=== PATIENT | male | born 1935 | race Caucasian/White ===

== ENCOUNTER 2017-10-06 12:06 | Emergency (ER) | payer BC, MEDICARE, OTHER ==
[2017-10-06 12:14] VITALS: RESP 18
[2017-10-06] MEDS ORDERED: SODIUM CHLORIDE 0.9% 500 ML IV STA (12:31)
--- NOTE | 2017-10-06 12:35 | ED ---
General Adult HPI - General Chief complaint: Dizziness Stated complaint: Hypertension Time Seen by Provider: 10/06/17 12:17 Source: patient, RN notes reviewed, old records reviewed Mode of arrival: ambulatory Limitations: no limitations - History of Present Illness Initial comments: 82-year-old male presenting for evaluation of elevated blood pressure. Patient was sent by his primary care physician with a blood pressure 190 systolic. Patient has no real specific complaints. States he has been taking 2 pills which she believes are from blood pressure, is uncertain exactly what these medications are. No recent changes. Patient denies current chest pain. States he has a mild frontal headache which she took nothing for and attributes to his sinusitis. This is been long-standing and unchanged. Denies nausea or vomiting. Denies abdominal pain. Denies shortness of breath. Denies lower extremity swelling. Denies fever or chills or URI symptoms. Patient's states she does sleep a lot. No focal weakness. No numbness. No vision changes. - Related Data Home Medications Medication Instructions Recorded Confirmed Aspirin EC [Ecotrin Low Dose] 81 mg PO DAILY 10/06/17 10/06/17 Lisinopril [Zestril] 10 mg PO DAILY 10/06/17 10/06/17 Magnesium Gluconate [Magonate] 500 mg PO DAILY 10/06/17 10/06/17 Metoprolol Tartrate [Lopressor] 50 mg PO BID 10/06/17 10/06/17 Omeprazole 20 mg PO DAILY 10/06/17 10/06/17 Vit C/E/Zn/Coppr/Lutein/Zeaxan 1 cap PO DAILY 10/06/17 10/06/17 [Preservision Areds 2 Softgel] Previous Rx's Medication Instructions Recorded Lisinopril [Prinivil] 20 mg PO DAILY #30 tablet 10/06/17 Allergies Allergy/AdvReac Type Severity Reaction Status Date / Time No Known Allergies Allergy Verified 10/06/17 12:11 Review of Systems ROS Statement: Those systems with pertinent positive or pertinent negative responses have been documented in the HPI. ROS Other: All systems not noted in ROS Statement are negative. Past Medical History Past Medical History: Hypertension History of Any Multi-Drug Resistant Organisms: None Reported Past Surgical History: Appendectomy, Cholecystectomy Additional Past Surgical History / Comment(s): surgery for rib repair Past Psychological History: No Psychological Hx Reported Smoking Status: Former smoker Past Alcohol Use History: Occasional Past Drug Use History: None Reported General Exam Limitations: no limitations General appearance: alert, in no apparent distress Head exam: Present: atraumatic, normocephalic Eye exam: Present: normal appearance, PERRL, EOMI ENT exam: Present: normal exam. Absent: normal oropharynx, mucous membranes dry Neck exam: Present: normal inspection, tenderness Respiratory exam: Present: normal lung sounds bilaterally. Absent: respiratory distress, wheezes, rales Cardiovascular Exam: Present: regular rate, normal rhythm GI/Abdominal exam: Present: soft. Absent: distended, tenderness Extremities exam: Present: normal inspection, normal capillary refill Back exam: Present: normal inspection, full ROM Neurological exam: Present: alert, oriented X3, CN II-XII intact, normal gait, other (No ataxia). Absent: motor sensory deficit Psychiatric exam: Present: normal affect, normal mood Skin exam: Present: warm, dry, intact. Absent: cyanosis, diaphoretic Course Vital Signs 10/06/17 10/06/17 10/06/17 12:11 13:24 14:00 Temperature 97.2 F L Pulse Rate 79 75 58 L Respiratory 18 18 18 Rate Blood Pressure 191/94 172/92 156/82 O2 Sat by Pulse 96 97 97 Oximetry EKG Findings - EKG Comments: EKG Findings:: EKG: Sinus rhythm with first-degree AV block, left facial enlargement, left axis deviation, right bundle branch block, rate of 74, NM interval 248, QRS duration 166, QTC 481 Medical Decision Making - Medical Decision Making 82-year-old male presenting with elevated blood pressure. Patient has no real specific complaints. He was sent in by his primary care for elevated blood pressure in the 190s systolic. Patient's initial blood pressure is elevated. He receives IV hydration and an additional dose of his 10 mg of lisinopril. Blood pressure is down trending. Workup including CBC, CMP, troponin is negative. EKG shows right bundle branch block with first-degree AV block, no old for comparison, no definitive signs of ischemia. Patient is eager for discharge. He will increase his 10 mg lisinopril to 20 mg and will follow-up with his primary care physician. - Lab Data Result diagrams: 10/06/17 13:30 10/06/17 13:30 Lab Results 10/06/17 10/06/17 10/06/17 Range/Units 13:30 13:30 13:30 WBC 7.1 (3.8-10.6) k/uL RBC 5.13 (4.30-5.90) m/uL Hgb 14.3 (13.0-17.5) gm/dL Hct 42.9 (39.0-53.0) % MCV 83.8 (80.0-100.0) fL MCH 27.9 (25.0-35.0) pg MCHC 33.3 (31.0-37.0) g/dL RDW 14.0 (11.5-15.5) % Plt Count 288 (150-450) k/uL Neutrophils % 58 % Lymphocytes % 31 % Monocytes % 5 % Eosinophils % 4 % Basophils % 1 % Neutrophils # 4.1 (1.3-7.7) k/uL Lymphocytes # 2.2 (1.0-4.8) k/uL Monocytes # 0.4 (0-1.0) k/uL Eosinophils # 0.3 (0-0.7) k/uL Basophils # 0.1 (0-0.2) k/uL PT 9.9 (9.0-12.0) sec INR 1.0 (<1.2) Sodium 142 (137-145) mmol/L Potassium 4.6 (3.5-5.1) mmol/L Chloride 105 (98-107) mmol/L Carbon Dioxide 25 (22-30) mmol/L Anion Gap 12 mmol/L BUN 16 (9-20) mg/dL Creatinine 0.93 (0.66-1.25) mg/dL Est GFR (CKD-EPI)AfAm 90 (>60 ml/min/1.73 sqM) Est GFR (CKD-EPI)NonAf 78 (>60 ml/min/1.73 sqM) Glucose 83 (74-99) mg/dL Calcium 9.1 (8.4-10.2) mg/dL Total Bilirubin 0.5 (0.2-1.3) mg/dL AST 28 (17-59) U/L ALT 34 (21-72) U/L Alkaline Phosphatase 81 (38-126) U/L Troponin I (0.000-0.034) ng/mL Total Protein 7.1 (6.3-8.2) g/dL Albumin 4.1 (3.5-5.0) g/dL 10/06/17 Range/Units 13:30 WBC (3.8-10.6) k/uL RBC (4.30-5.90) m/uL Hgb (13.0-17.5) gm/dL Hct (39.0-53.0) % MCV (80.0-100.0) fL MCH (25.0-35.0) pg MCHC (31.0-37.0) g/dL RDW (11.5-15.5) % Plt Count (150-450) k/uL Neutrophils % % Lymphocytes % % Monocytes % % Eosinophils % % Basophils % % Neutrophils # (1.3-7.7) k/uL Lymphocytes # (1.0-4.8) k/uL Monocytes # (0-1.0) k/uL Eosinophils # (0-0.7) k/uL Basophils # (0-0.2) k/uL PT (9.0-12.0) sec INR (<1.2) Sodium (137-145) mmol/L Potassium (3.5-5.1) mmol/L Chloride (98-107) mmol/L Carbon Dioxide (22-30) mmol/L Anion Gap mmol/L BUN (9-20) mg/dL Creatinine (0.66-1.25) mg/dL Est GFR (CKD-EPI)AfAm (>60 ml/min/1.73 sqM) Est GFR (CKD-EPI)NonAf (>60 ml/min/1.73 sqM) Glucose (74-99) mg/dL Calcium (8.4-10.2) mg/dL Total Bilirubin (0.2-1.3) mg/dL AST (17-59) U/L ALT (21-72) U/L Alkaline Phosphatase (38-126) U/L Troponin I <0.012 (0.000-0.034) ng/mL Total Protein (6.3-8.2) g/dL Albumin (3.5-5.0) g/dL Disposition Clinical Impression: Hypertension Disposition: HOME SELF-CARE Condition: Good Instructions: Hypertension (ED) Additional Instructions: Please increase lisinopril dose to 20 mg daily. Monitor blood pressure and follow-up with primary care physician. Prescriptions: Lisinopril [Prinivil] 20 mg PO DAILY #30 tablet Is patient prescribed a controlled substance at d/c from ED?: No Referrals: [facility],Clinic [Primary Care Provider] - 1-2 days Time of Disposition: 14:54
[2017-10-06 13:47] LABS: Basophils # (A) 0.1 k/uL (0-0.2); Basophils % (A) 1 %; Eosinophils # (A) 0.3 k/uL (0-0.7); Eosinophils % (A) 4 %; HCT 42.9 % (39.0-53.0); HGB 14.3 gm/dL (13.0-17.5); Lymphocytes # (A) 2.2 k/uL (1.0-4.8); Lymphocytes % (A) 31 %; MCH 27.9 pg (25.0-35.0); MCHC 33.3 g/dL (31.0-37.0); MCV 83.8 fL (80.0-100.0); Mean Platelet Volume 7.8; Monocytes # (A) 0.4 k/uL (0-1.0); Monocytes % (A) 5 %; Neutrophils # (A) 4.1 k/uL (1.3-7.7); Neutrophils % (A) 58 %; Platelet Count 288 k/uL (150-450); RBC 5.13 m/uL (4.30-5.90); WBC 7.1 k/uL (3.8-10.6)
--- NOTE | 2017-10-06 13:49 | XR ---
EXAMINATION TYPE: XR chest 2V DATE OF EXAM: 10/06/2017 COMPARISON: NONE HISTORY: Chest pain and hypertension TECHNIQUE: Frontal and lateral views of the chest are obtained. FINDINGS: Minimal left basilar platelike subsegmental atelectasis is noted. There is no focal air spa ce opacity, pleural effusion, or pneumothorax seen. The cardiac silhouette size is within normal cook its. The osseous structures are intact. Mild generalized osseous demineralization is seen. IMPRESSION: Minimal left basilar subsegmental atelectasis, otherwise acute cardiopulmonary process.
[2017-10-06 13:53] LABS: Prothrombin Time 9.9 sec (9.0-12.0)
[2017-10-06 13:56] LABS: Albumin 4.1 g/dL (3.5-5.0); Calcium 9.1 mg/dL (8.4-10.2); Potassium 4.6 mmol/L (3.5-5.1); Total Bilirubin 0.5 mg/dL (0.2-1.3); Total Protein 7.1 g/dL (6.3-8.2)
[2017-10-06] MEDS ORDERED: LISINOPRIL 10 MG TAB PO STA (14:17)
[2017-10-06 15:25] VITALS: BP 167/79; PULSE 72; TEMP 97.4
== END 2017-10-06 15:23 | disposition home or self-care (01) ==
LOC: EC 12:06
DX: I10 Essential (primary) hypertension (principal); I45.10 Unspecified right bundle-branch block; I44.0 Atrioventricular block, first degree; Z87.891 Personal history of nicotine dependence; Z79.82 Long term (current) use of aspirin; Z79.899 Other long term (current) drug therapy
CPT/HCPCS: 36415; 71046; 80053; 84484; 85025; 85610; 93005; 99284

== ENCOUNTER 2023-01-03 13:13 | Inpatient (IN) | payer OTHER, MEDICARE ==
--- NOTE | 2023-01-03 15:23 | XR ---
EXAMINATION TYPE: XR chest 2V DATE OF EXAM: 01/03/2023 COMPARISON: 5 08/12/2019 TECHNIQUE: PA and lateral views submitted. HISTORY: Difficulty breathing FINDINGS: The lungs are clear and there is no pneumothorax, pleural effusion, or focal pneumonia. Heart size normal and no overt failure. Osseous structures demonstrate hypertrophic and degenerative changes of the spine. Hyperinflation of the lungs. There is arthropathy of the shoulders with diffuse osteopenia . Tortuosity of the aorta. Biapical pleural thickening. Hypertrophic and degenerative changes of the spine. A rounded density in the left hilum may represent a small calcified lymph node or granuloma. IMPRESSION: 1. No acute process. 2. Correlate for COPD\ pulmonary arterial hypertension.
[2023-01-03 15:38] LABS: Basophils % (A) 0 %; Eosinophils # (A) 0.1 k/uL (0-0.7); Eosinophils % (A) 1 %; HCT 45.2 % (39.0-53.0); Lymphocytes % (A) 21 %; MCH 29.2 pg (25.0-35.0); MCHC 33.1 g/dL (31.0-37.0); MCV 88.1 fL (80.0-100.0); Mean Platelet Volume 8.3; Monocytes # (A) 0.5 k/uL (0-1.0); Monocytes % (A) 5 %; Neutrophils # (A) 6.5 k/uL (1.3-7.7); Neutrophils % (A) 70 %; Platelet Count 248 k/uL (150-450); RBC 5.13 m/uL (4.30-5.90); RDW 13.8 % (11.5-15.5); WBC 9.3 k/uL (3.8-10.6)
[2023-01-03 15:39] LABS: Partial Thromboplastin Time 25.7 sec (22.0-30.0); Prothrombin Time 10.3 sec (9.0-12.0)
[2023-01-03 15:43] LABS: ALT 35 U/L (4-49); AST 30 U/L (17-59); African American GFR (CKD) 76 (>60 ml/min/1.73 sqM); Alkaline Phosphatase 89 U/L (38-126); Anion Gap 8 mmol/L; Blood Urea Nitrogen 19 mg/dL (9-20); Calcium 8.5 mg/dL (8.4-10.2); Carbon Dioxide 28 mmol/L (22-30); Chloride 103 mmol/L (98-107); Glucose 93 mg/dL (74-99); Magnesium 2.2 mg/dL (1.6-2.3); Non-African American GFR(CKD) 66 (>60 ml/min/1.73 sqM); Potassium 4.3 mmol/L (3.5-5.1); Sodium 139 mmol/L (137-145); Total Bilirubin 0.9 mg/dL (0.2-1.3); Total Protein 7.7 g/dL (6.3-8.2)
--- NOTE | 2023-01-03 18:33 | ED ---
SOB HPI - General Chief Complaint: Shortness of Breath Stated Complaint: SOB Time Seen by Provider: 01/03/23 16:04 Source: patient Mode of arrival: ambulatory Limitations: no limitations - History of Present Illness Initial Comments: 87-year-old male with past medical history of hypertension who presents to the emergency department reporting shortness of breath. Daughter and are at bedside and helps supplement the history. States that the patient has been more short of breath over the past month with extreme worsening over the past 2 weeks. They state that he cannot walk to the end of his driveway without having to stop. He denies previous history of lung issues. Denies COPD or asthma. Does admit that he has chest pressure with these shortness of breath. Denies history of coronary disease but does admit to history of aortic aneurysm. He has had some lower extremity swelling. No history of heart failure. Denies history of DVT or PE. No fevers, chills or cough. No other alleviating, precipitating or modifying factors - Related Data Home Medications Medication Instructions Recorded Confirmed Aspirin EC [Ecotrin Low Dose] 81 mg PO Q2D 10/06/17 01/03/23 Magnesium Gluconate [Magonate] 500 mg PO HS 10/06/17 01/03/23 Vit C/E/Zn/Coppr/Lutein/Zeaxan 1 cap PO DAILY 10/06/17 01/03/23 [Preservision Areds 2 Softgel] Carboxymethylcellulose Sodium 1 drop BOTH EYES QID 01/03/23 01/03/23 [Refresh Tears] Lisinopril-Hctz 20-12.5 mg 1 tab PO DAILY 01/03/23 01/03/23 [Zestoretic 20-12.5] Metoprolol Tartrate [Lopressor] 25 mg PO BID 01/03/23 01/03/23 Allergies Allergy/AdvReac Type Severity Reaction Status Date / Time No Known Allergies Allergy Verified 01/03/23 17:03 Review of Systems ROS Statement: Those systems with pertinent positive or pertinent negative responses have been documented in the HPI. ROS Other: All systems not noted in ROS Statement are negative. 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 Past Psychological History: No Psychological Hx Reported Smoking Status: Former smoker Past Alcohol Use History: Occasional Past Drug Use History: None Reported - Past Family History Father Family Medical History: COPD General Exam Limitations: no limitations General appearance: alert, in no apparent distress Head exam: Present: atraumatic, normocephalic, normal inspection Eye exam: Present: normal appearance, PERRL, EOMI. Absent: scleral icterus, co njunctival injection, periorbital swelling ENT exam: Present: normal exam, mucous membranes moist Neck exam: Present: normal inspection. Absent: tenderness, meningismus, lymphadenopathy Respiratory exam: Present: normal lung sounds bilaterally. Absent: respiratory distress, wheezes, rales, rhonchi, stridor Cardiovascular Exam: Present: regular rate, normal rhythm, normal heart sounds. Absent: systolic murmur, diastolic murmur, rubs, gallop, clicks GI/Abdominal exam: Present: soft, normal bowel sounds. Absent: distended, tenderness, guarding, rebound, rigid Extremities exam: Present: full ROM, normal capillary refill, pedal edema (2+ bilaterally). Absent: tenderness, joint swelling, calf tenderness Back exam: Present: normal inspection Neurological exam: Present: alert, oriented X3, CN II-XII intact Psychiatric exam: Present: normal affect, normal mood Skin exam: Present: warm, dry, intact, normal color. Absent: rash Course Vital Signs 01/03/23 01/03/23 01/03/23 13:38 16:14 20:00 Temperature 97.5 F L Pulse Rate 98 94 78 Respiratory 22 18 22 Rate Blood Pressure 104/68 160/95 158/85 O2 Sat by Pulse 93 L 93 L 96 Oximetry 01/03/23 01/04/23 22:00 01:00 Temperature Pulse Rate 76 80 Respiratory 22 18 Rate Blood Pressure 146/92 137/95 O2 Sat by Pulse 96 97 Oximetry - Reevaluation(s) Reevaluation #1: 01/03/23 18:[address] Mckeon Reevaluation #2: Spoke with Dr. Khalil 01/03/23 18:42 Medical Decision Making - Medical Decision Making Was pt. sent in by a medical professional or institution (DrJoyce, PA, STUDIO TECHNICIAN, urgent care, hospital, or care home...) When possible be specific @ -No Did you speak to anyone other than the patient for history (EMS, parent, family, police, friend...)? What history was obtained from this source @ -I spoke with the patient's and daughter Did you review nursing and triage notes (agree or disagree)? Why? @ -I reviewed and agree with nursing and triage notes Were old charts reviewed (outside hosp., previous admission, EMS record, old EKG, old radiological studies, urgent care reports/EKG's, care home records)? Report findings @ -No old charts were reviewed Differential Diagnosis (chest pain, altered mental status, abdominal pain women, abdominal pain men, vaginal bleeding, weakness, fever, dyspnea, syncope, headache, dizziness, GI bleed, back pain, seizure, CVA, palpatations, mental he alth, musculoskeletal)? @ -Differential Dyspnea: Coronary syndrome, arrhythmia, tamponade, asthma, COPD, pulmonary embolism, pneumonia, pneumothorax, pulmonary effusion, anaphylaxis, diabetic ketoacidosis, flailed chest, pulmonary contusion, diaphragmatic rupture, anemia, neurom uscular, this is not meant to be an all-inclusive list. EKG interpreted by me (3pts min.). @ -Yes and demonstrates sinus tachycardia with a rate of 103. MT interval 219. QRS 152. QTC of 408. Right bundle branch block. Left axis deviation. Multiple PVCs X-rays interpreted by me (1pt min.). @ -Yes and demonstrates hyperinflated lungs CT interpreted by me (1pt min.). @ -Yes and demonstrates multiple PEs bilaterally U/S interpreted by me (1pt. min.). @ -None done What testing was considered but not performed or refused? (CT, X-rays, U/S, labs)? Why? @ -None What meds were considered but not given or refused? Why? @ -None Did you discuss the management of the patient with other professionals (professionals i.e. DrJoyce, PA, STUDIO TECHNICIAN, lab, RT, psych nurse, psychotherapist social worker, supply requirements officer, teacher, prison officer, immigration case worker)? Give summary @ -I spoke with Dr. Khalil who is on for EKOS. Also spoke with Dr. Ch who will admit patient Was smoking cessation discussed for >3mins.? @ -No Was critical care preformed (if so, how long)? @ -yes, 42 minutes for diagnosis of bilateral PEs with heparin. Consultation was with vascular surgery Were there social determinants of health that impacted care today? How? (Homelessness, low income, unemployed, alcoholism, drug addiction, transportation, low edu. Level, literacy, decrease access to med. care, long-term, rehab)? @ -No Was there de-escalation of care discussed even if they declined (Discuss DNR or withdrawal of care, Hospice)? DNR status @ -No What co-morbidities impacted this encounter? (DM, HTN, Smoking, COPD, CAD, Cancer, CVA, ARF, Chemo, Hep., AIDS, mental health diagnosis, sleep apnea, morbid obesity)? @ -Obesity Was patient admitted / discharged? Hospital course, mention meds given and route, prescriptions, significant lab abnormalities, going to OR and other pert inent info. @ -Upon arrival patient was placed in room 17. A thorough history and physical exam was performed. Triage labs had been obtained. I have limited the patient myself in added a d-dimer. D-dimer does come back elevated at 12. He is sent for CT of his chest which demonstrates multiple bilateral PEs with concern for possible heart strain. I did speak with Dr. Khalil who is on for EKOS. Patient hemodynamically stable at this time. Started on a heparin drip. Spoke with Melissa from [facility] who agreed to admit the patient Undiagnosed new problem with uncertain prognosis? @ -Yes Drug Therapy requiring intensive monitoring for toxicity (Heparin, Nitro, Insulin, Cardizem)? @ -Yes, heparin Were any procedures done? @ -No Diagnosis/symptom? @ -Acute respiratory insufficiency, acute bilateral PE with possible heart strain Acute, or Chronic, or Acute on Chronic? @ -Acute Uncomplicated (without systemic symptoms) or Complicated (systemic symptoms)? @ -Complicated Side effects of treatment? @ -Bleeding Exacerbation, Progression, or Severe Exacerbation? @ -No Poses a threat to life or bodily function? How? (Chest pain, USA, MA, pneumonia, PE, COPD, DKA, ARF, appy, cholecystitis, CVA, Diverticulitis, Homicidal, Suicidal, threat to staff... and all critical care pts) @ -Yes patient has possible heart strain - Lab Data Result diagrams: 01/03/23 15:04 01/03/23 15:04 Lab Results 01/03/23 01/03/23 01/03/23 Range/Units 15:04 15:04 15:04 WBC 9.3 (3.8-10.6) k/uL RBC 5.13 (4.30-5.90) m/uL Hgb 15.0 (13.0-17.5) gm/dL Hct 45.2 (39.0-53.0) % MCV 88.1 (80.0-100.0) fL MCH 29.2 (25.0-35.0) pg MCHC 33.1 (31.0-37.0) g/dL RDW 13.8 (11.5-15.5) % Plt Count 248 (150-450) k/uL MPV 8.3 Neutrophils % 70 % Lymphocytes % 21 % Monocytes % 5 % Eosinophils % 1 % Basophils % 0 % Neutrophils # 6.5 (1.3-7.7) k/uL Lymphocytes # 2.0 (1.0-4.8) k/uL Monocytes # 0.5 (0-1.0) k/uL Eosinophils # 0.1 (0-0.7) k/uL Basophils # 0.0 (0-0.2) k/uL PT 10.3 (9.0-12.0) sec INR 1.0 (<1.2) APTT 25.7 (22.0-30.0) sec D-Dimer (<0.60) mg/L FEU Sodium 139 (137-145) mmol/L Potassium 4.3 (3.5-5.1) mmol/L Chloride 103 (98-107) mmol/L Carbon Dioxide 28 (22-30) mmol/L Anion Gap 8 mmol/L BUN 19 (9-20) mg/dL Creatinine 1.04 (0.66-1.25) mg/dL Est GFR (CKD-EPI)AfAm 76 (>60 ml/min/1.73 sqM) Est GFR (CKD-EPI)NonAf 66 (>60 ml/min/1.73 sqM) Glucose 93 (74-99) mg/dL Calcium 8.5 (8.4-10.2) mg/dL Magnesium 2.2 (1.6-2.3) mg/dL Total Bilirubin 0.9 (0.2-1.3) mg/dL AST 30 (17-59) U/L ALT 35 (4-49) U/L Alkaline Phosphatase 89 (38-126) U/L Troponin I (0.000-0.034) ng/mL NT-Pro-B Natriuret Pep pg/mL Total Protein 7.7 (6.3-8.2) g/dL Albumin 4.0 (3.5-5.0) g/dL 01/03/23 01/03/23 01/03/23 Range/Units 15:04 15:04 16:17 WBC (3.8-10.6) k/uL RBC (4.30-5.90) m/uL Hgb (13.0-17.5) gm/dL Hct (39.0-53.0) % MCV (80.0-100.0) fL MCH (25.0-35.0) pg MCHC (31.0-37.0) g/dL RDW (11.5-15.5) % Plt Count (150-450) k/uL MPV Neutrophils % % Lymphocytes % % Monocytes % % Eosinophils % % Basophils % % Neutrophils # (1.3-7.7) k/uL Lymphocytes # (1.0-4.8) k/uL Monocytes # (0-1.0) k/uL Eosinophils # (0-0.7) k/uL Basophils # (0-0.2) k/uL PT (9.0-12.0) sec INR (<1.2) APTT (22.0-30.0) sec D-Dimer 12.43 H (<0.60) mg/L FEU Sodium (137-145) mmol/L Potassium (3.5-5.1) mmol/L Chloride (98-107) mmol/L Carbon Dioxide (22-30) mmol/L Anion Gap mmol/L BUN (9-20) mg/dL Creatinine (0.66-1.25) mg/dL Est GFR (CKD-EPI)AfAm (>60 ml/min/1.73 sqM) Est GFR (CKD-EPI)NonAf (>60 ml/min/1.73 sqM) Glucose (74-99) mg/dL Calcium (8.4-10.2) mg/dL Magnesium (1.6-2.3) mg/dL Total Bilirubin (0.2-1.3) mg/dL AST (17-59) U/L ALT (4-49) U/L Alkaline Phosphatase (38-126) U/L Troponin I 0.033 (0.000-0.034) ng/mL NT-Pro-B Natriuret Pep 6560 pg/mL Total Protein (6.3-8.2) g/dL Albumin (3.5-5.0) g/dL Disposition Clinical Impression: Pulmonary embolism, Hypoxia Disposition: ADMITTED IP TO THIS [facility] Condition: Serious Is patient prescribed a controlled substance at d/c from ED?: No Time of Disposition: 18:44 Decision to Admit Reason: Admit from EC Decision Date: 01/03/23 Decision Time: 18:44
[2023-01-03] MEDS ORDERED: HEPARIN SODIUM 1,000 UN/ML (10ML VL) IV ONE (18:37)
[2023-01-03] MEDS ORDERED: HEPARIN SODIUM 1,000 UN/ML (10ML VL) IV PRN (18:37)
--- NOTE | 2023-01-03 18:39 | CT ---
EXAMINATION TYPE: CT chest angio for PE DATE OF EXAM: 01/03/2023 COMPARISON: Radiograph same day HISTORY: 87-year-old male chest pain and SOB TECHNIQUE: Contiguous axial scanning of the chest performed with IV Contrast, patient injected with 8 0 mL of Isovue 370. Coronal/sagittal MIP reconstructions performed. CT DLP: 658.9 mGycm Automated exposure control for dose reduction was used. FINDINGS: The heart is upper limits of normal in size without pericardial effusion. There is flattening of the interventricular septum. Mild LAD coronary artery calcifications and mild aortic valvular calcificati ons. Aorta normal caliber with mild atelectatic calcifications throughout. Conventional arch vessel branch ing anatomy. There is a small ductal diverticulum measuring 1.5 cm from the inferior aortic arch. No thoracic lymphadenopathy by CT size criteria. Large caliber to the main right and left pulmonary arteries measuring up to 3.3 cm compatible with pu lmonary hypertension. There is pulmonary embolus on the right extending throughout the lobar, segmental, subsegmental branc hes throughout the right lung. On the left, distal lobar branch embolic material extends extensively into segmental and some subsegm ental branches. There is a focal opacity posterior left upper lobe which is nonspecific. Mild emphysematous change. B radycardia motion artifact. Additional patchy opacity at the left base. No pleural effusion. Small hiatal hernia. Cholecystectomy clips. There is a 2.8 cm cyst of the left hepatic dome. Tiny tello cified granulomas within the spleen. Bones: Anterior plate spondylosis mid to lower thoracic spine. IMPRESSION: 1. POSITIVE FOR BILATERAL PULMONARY EMBOLI, EXTENSIVELY INVOLVING THE RIGHT LUNG THROUGHOUT THE LOBAR , SEGMENTAL, AND SUBSEGMENTAL BRANCHES. LESS EXTENSIVELY INVOLVING DISTAL LOBAR, SEGMENTAL, AND SOME SUBSEGMENTAL BRANCHES ON THE LEFT. SEVERE BURDEN OF CLOT ON THE RIGHT. 2. CT FINDINGS SUGGEST RIGHT HEART STRAIN. 3. COPD WITH MILD EMPHYSEMA. THERE IS SOME FOCAL AIR SPACE OPACITY POSTERIOR LEFT UPPER LOBE WHICH IS NONSPECIFIC. PNEUMONIA AND EARLY PULMONARY INFARCT ARE BOTH CONSIDERATIONS. FINDINGS DISCUSSED OVER THE PHONE WITH DR. CÁRDENAS IN THE ER AT 6:35 PM.
[2023-01-03] MEDS ORDERED: NALOXONE 0.4 MG/ML 1 ML VIAL IV PRN (18:44)
[2023-01-03] MEDS: HEPARIN SOD,PORK IN 0.45% NACL 25,000 UNIT in 0.45% NACL 1 250ML.BAG IV SCH (18:53)
--- NOTE | 2023-01-04 01:51 | P.HPIM ---
History of Present Illness H&P Date: 01/03/23 Patient is a 87-year-old male with a PMH of hypertension who presents to the emergency room with complaints of shortness of breath. The patient reports that he has been experiencing gradually worsening shortness of breath over the past 1 month. He reports that the breathing significantly worsened over the past few days, which prompted him to come to the emergency room. He also reports a left lateral pleuritic chest discomfort, 4 out of 10 at maximal intensity, nonradiating, with no exacerbating features. Patient reports he went on a trip to [place] earlier in the month but is unsure if that is exactly when his symptoms started. Reports long-standing history of bilateral lower extremity pitting edema, with left slightly greater than right. Denied lower extremity pain. Denied experiencing fever, chills, cough, abdominal pain, nausea, vomiting, diaphoresis. In the emergency room, upon arrival, the patient's vitals were SpO2 93% on room air, BP 104/68, pulse 98, and temp 97.5F. CT chest angiogram for PE revealed bilateral pulmonary emboli with extensive involvement with severe burden of clot on the right with findings suggestive of right heart strain. EKG revealed sinus tachycardia 103 bpm with first-degree AV block with left axis deviation and right bundle branch block. The laboratory evaluation was reviewed and revealed a troponin of 0.033 proBNP 6560. ED documentation reviewed and case discussed with ED provider. Review of systems: Pertinent positives and negatives as discussed in HPI, a complete review of systems was performed and all other systems are negative. Physical examination: Vital signs reviewed General: non toxic, no distress, appears at stated age, normal weight Derm: no unusual rashes/lesions, warm Head: atraumatic, normocephalic, symmetric Eyes: EOMI, no lid lag, anicteric sclera, pupils equal round reactive to light ENT: Nose and ears atraumatic Neck: No cervical lymphadenopathy, trachea midline, supple Mouth: no lip lesion, mucus membranes moist Cardiovascular: S1S2 reg, no murmur, positive dorsalis pedis pulse bilateral, 1+ bilateral lower extremities edema without calf tenderness Lungs: CTA bilateral, no rhonchi, no rales, no accessory muscle use Abdominal: soft, nontender to palpation, no guarding Ext: muscle strength 5 out of 5 in all 4 extremities grossly, no gross muscle atrophy, no contractures, Neuro: CN II-XI grossly intact, no gross focal neuro deficits Psych: Alert, oriented, appropriate affect Assessment: Submassive bilateral PE Acute hypoxic respiratory failure secondary to above Chronic conditions: Hypertension Imaging: CT chest angiogram for PE revealed bilateral pulmonary emboli with extensive involvement with severe burden of clot on the right with findings suggestive of right heart strain. EKG revealed sinus tachycardia 103 bpm with first-degree AV block with left axis deviation and right bundle branch block. Data Review: The laboratory evaluation was reviewed and revealed a troponin of 0.033 proBNP 6560. 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 Past Psychological History: No Psychological Hx Reported Smoking Status: Former smoker Past Alcohol Use History: Occasional Past Drug Use History: None Reported - Past Family History Father Family Medical History: COPD Medications and Allergies Home Medications Medication Instructions Recorded Confirmed Type Aspirin EC [Ecotrin Low Dose] 81 mg PO Q2D 10/06/17 01/03/23 History Magnesium Gluconate [Magonate] 500 mg PO HS 10/06/17 01/03/23 History Vit C/E/Zn/Coppr/Lutein/Zeaxan 1 cap PO DAILY 10/06/17 01/03/23 History [Preservision Areds 2 Softgel] Carboxymethylcellulose Sodium 1 drop BOTH EYES QID 01/03/23 01/03/23 History [Refresh Tears] Lisinopril-Hctz 20-12.5 mg 1 tab PO DAILY 01/03/23 01/03/23 History [Zestoretic 20-12.5] Metoprolol Tartrate [Lopressor] 25 mg PO BID 01/03/23 01/03/23 History Allergies Allergy/AdvReac Type Severity Reaction Status Date / Time No Known Allergies Allergy Verified 01/03/23 17:03 Physical Exam Vitals: Vital Signs Temp Pulse Resp BP Pulse Ox 01/03/23 16:14 94 18 160/95 93 L 01/03/23 13:38 97.5 F L 98 22 104/68 93 L Intake and Output 01/03/23 01/03/23 01/04/23 14:59 22:59 06:59 Other: Weight 102.512 kg Results CBC & Chem 7: 01/03/23 15:04 01/03/23 15:04 Labs: Abnormal Lab Results - Last 24 Hours (Table) 01/03/23 Range/Units 16:17 D-Dimer 12.43 H (<0.60) mg/L FEU
[2023-01-04 05:27] LABS: Basophils # (A) 0.1 k/uL (0-0.2); Basophils % (A) 1 %; Eosinophils # (A) 0.3 k/uL (0-0.7); Eosinophils % (A) 3 %; HCT 42.2 % (39.0-53.0); HGB 13.9 gm/dL (13.0-17.5); Lymphocytes # (A) 2.3 k/uL (1.0-4.8); Lymphocytes % (A) 28 %; MCH 29.3 pg (25.0-35.0); MCHC 32.9 g/dL (31.0-37.0); MCV 88.9 fL (80.0-100.0); Mean Platelet Volume 9.9; Monocytes # (A) 0.5 k/uL (0-1.0); Monocytes % (A) 6 %; Neutrophils % (A) 61 %; Platelet Count 216 k/uL (150-450); RBC 4.75 m/uL (4.30-5.90); RDW 13.7 % (11.5-15.5); WBC 8.3 k/uL (3.8-10.6)
[2023-01-04 05:52] LABS: ALT 34 U/L (4-49); AST 33 U/L (17-59); African American GFR (CKD) 90 (>60 ml/min/1.73 sqM); Albumin 3.5 g/dL (3.5-5.0); Alkaline Phosphatase 88 U/L (38-126); Anion Gap 8 mmol/L; Blood Urea Nitrogen 19 mg/dL (9-20); Calcium 8.5 mg/dL (8.4-10.2); Carbon Dioxide 21 mmol/L (22-30); Chloride 107 mmol/L (98-107); Glucose 102 mg/dL (74-99); Non-African American GFR(CKD) 78 (>60 ml/min/1.73 sqM); Potassium 4.4 mmol/L (3.5-5.1); Sodium 136 mmol/L (137-145); Total Bilirubin 0.9 mg/dL (0.2-1.3); Total Protein 6.9 g/dL (6.3-8.2)
--- NOTE | 2023-01-04 09:20 | P.GSCN ---
History of Present Illness Consult date: 01/04/23 Reason for Consult: Lateral pulmonary emboli with possible right heart strain Requesting physician: Rubia Sanchez History of present illness: A pleasant 87-year-old male who presented to the emergency department with c omplaints of shortness of breath and chest pain. He should has a past medical history including a pretension and COPD. over the last month he's been having gradually worsening shortness of breath. After last few days and has been worsening and he started having left pleuritic chest discomfort. He did take a trip to [place] earlier in the month. No previous history of DVT or pulmonary embolism. Patient is currently on oxygen 2 L per nasal cannula, saturations are 94-97%. Heart rate 83 respiratory rate 18 blood pressure 135/88. Had a CT angiogram chest which showed multiple bilateral pulmonary emboli. Vascular surgery was consulted for bilateral PE with possible heart strain. Patient's troponins are negative. Echocardiogram is currently pending. He states he is feeling much better, shortness of breath has improved, denies any chest pain at this time. Denies any pain in his legs. Review of Systems A 14 point review systems was completed all pertinent positives and negatives as stated in the HPI. 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 Past Psychological History: No Psychological Hx Reported Smoking Status: Former smoker Past Alcohol Use History: Occasional Past Drug Use History: None Reported - Past Family History Father Family Medical History: COPD Medications and Allergies Home Medications Medication Instructions Recorded Confirmed Type Aspirin EC [Ecotrin Low Dose] 81 mg PO Q2D 10/06/17 01/03/23 History Magnesium Gluconate [Magonate] 500 mg PO HS 10/06/17 01/03/23 History Vit C/E/Zn/Coppr/Lutein/Zeaxan 1 cap PO DAILY 10/06/17 01/03/23 History [Preservision Areds 2 Softgel] Carboxymethylcellulose Sodium 1 drop BOTH EYES QID 01/03/23 01/03/23 History [Refresh Tears] Lisinopril-Hctz 20-12.5 mg 1 tab PO DAILY 01/03/23 01/03/23 History [Zestoretic 20-12.5] Metoprolol Tartrate [Lopressor] 25 mg PO BID 01/03/23 01/03/23 History Allergies Allergy/AdvReac Type Severity Reaction Status Date / Time No Known Allergies Allergy Verified 01/03/23 17:03 Surgical - Exam Vital Signs Temp Pulse Resp BP Pulse Ox 97.5 F L 98 22 104/68 93 L 01/03/23 13:38 01/03/23 13:38 01/03/23 13:38 01/03/23 13:38 01/03/23 13:38 General appearance: The patient is alert, oriented, appears in no acute distress. HET: Head is normocephalic and atraumatic. Pupils are equal and reactive. Neck: Supple. Heart: Regular. Lungs: Equal expansion, normal respiratory effort. Abdomen: Soft, nontender, nondistended. Extremities: Normal skin color and turgor. Neurological: No focal deficits. Alert and oriented. Results - Labs 01/04/23 02:46 01/04/23 02:46 Abnormal Lab Results - Last 24 Hours (Table) 01/03/23 01/04/23 01/04/23 Range/Units 16:17 02:46 02:46 APTT 146.9 H* (22.0-30.0) sec D-Dimer 12.43 H (<0.60) mg/L FEU Sodium 136 L (137-145) mmol/L Carbon Dioxide 21 L (22-30) mmol/L Glucose 102 H (74-99) mg/dL Diabetes panel 01/03/23 01/04/23 Range/Units 15:04 02:46 Sodium 139 136 L (137-145) mmol/L Potassium 4.3 4.4 (3.5-5.1) mmol/L Chloride 103 107 (98-107) mmol/L Carbon Dioxide 28 21 L (22-30) mmol/L BUN 19 19 (9-20) mg/dL Creatinine 1.04 0.90 (0.66-1.25) mg/dL Glucose 93 102 H (74-99) mg/dL Calcium 8.5 8.5 (8.4-10.2) mg/dL AST 30 33 (17-59) U/L ALT 35 34 (4-49) U/L Alkaline Phosphatase 89 88 (38-126) U/L Total Protein 7.7 6.9 (6.3-8.2) g/dL Albumin 4.0 3.5 (3.5-5.0) g/dL Calcium panel 01/03/23 01/04/23 Range/Units 15:04 02:46 Calcium 8.5 8.5 (8.4-10.2) mg/dL Albumin 4.0 3.5 (3.5-5.0) g/dL Pituitary panel 01/03/23 01/04/23 Range/Units 15:04 02:46 Sodium 139 136 L (137-145) mmol/L Potassium 4.3 4.4 (3.5-5.1) mmol/L Chloride 103 107 (98-107) mmol/L Carbon Dioxide 28 21 L (22-30) mmol/L BUN 19 19 (9-20) mg/dL Creatinine 1.04 0.90 (0.66-1.25) mg/dL Glucose 93 102 H (74-99) mg/dL Calcium 8.5 8.5 (8.4-10.2) mg/dL Adrenal panel 01/03/23 01/04/23 Range/Units 15:04 02:46 Sodium 139 136 L (137-145) mmol/L Potassium 4.3 4.4 (3.5-5.1) mmol/L Chloride 103 107 (98-107) mmol/L Carbon Dioxide 28 21 L (22-30) mmol/L BUN 19 19 (9-20) mg/dL Creatinine 1.04 0.90 (0.66-1.25) mg/dL Glucose 93 102 H (74-99) mg/dL Calcium 8.5 8.5 (8.4-10.2) mg/dL Total Bilirubin 0.9 0.9 (0.2-1.3) mg/dL AST 30 33 (17-59) U/L ALT 35 34 (4-49) U/L Alkaline Phosphatase 89 88 (38-126) U/L Total Protein 7.7 6.9 (6.3-8.2) g/dL Albumin 4.0 3.5 (3.5-5.0) g/dL - Imaging CT scan - chest: report reviewed (Positive for bilateral pulmonary emboli extensive involving the right lung throughout the lobar, segmental and subsegmental branches less extensively involving distal lobar and segmental and some segmental branches on the left. Severe burden of clot on the right. CT findings suggest right heart st) Assessment and Plan Assessment: 1. Bilateral pulmonary emboli 2. COPD 3. Hypertension Plan: 1. Continue symptomatic and supportive treatment 2. Continue heparin drip for now 3. Await echocardiogram results 4. Venous duplex ordered 5. Further recommendations forthcoming per echocardiogram results however it does not appear that patient will need any vascular surgical intervention Thank you for this consultation, we will continue to follow. The impression and plan of care has been dictated as directed. I performed a history and examination of this patient, discussed the same with the dictator. I agree with the dictator's note ,documented as a scribe. Any additional findings or plans will be noted.
[2023-01-04] MEDS: HEPARIN SOD,PORK IN 0.45% NACL 25,000 UNIT in 0.45% NACL 1 250ML.BAG IV SCH (10:03)
--- NOTE | 2023-01-04 11:57 | CA ---
Transthoracic Echo Report Name: Parrish Caldwell Age: 87 Gender: M : 1935 Exam Date: 01/04/2023 08:12 Exam Location: [facility] Ht (in): 72 Wt (lb): 226 Ordering Physician: Rubia Sanchez DO Attending/Referring Phys: [id number], Laura Block Press Operator Andrew Priti Procedure CPT: Indications: pe, heart strain Cardiac Hx: Technical Quality: Technically difficult study Contrast 1: Total Dose (mL): Contrast 2: Total Dose (mL): MEASUREMENTS (Male / Female) Normal Values 2D ECHO LV Diastolic Diameter PLAX 4.8 cm 4.2 - 5.9 / 3.9 - 5.3 cm LV Systolic Diameter PLAX 3.2 cm IVS Diastolic Thickness 1.4 cm 0.6 - 1.0 / 0.6 - 0.9 cm LVPW Diastolic Thickness 1.2 cm 0.6 - 1.0 / 0.6 - 0.9 cm LV Relative Wall Thickness 0.5 RV Internal Dim ED PLAX 5.7 cm LVOT Diameter 2.6 cm Aortic Root Diameter 3.1 cm LA Systolic Diameter LX 3.6 cm 3.0 - 4.0 / 2.7 - 3.8 cm LV Diastolic Volume MOD BP 66.0 cm??? 67 - 155 / 56 - 104 cm??? LV Systolic Volume MOD BP 42.8 cm??? 22 - 58 / 19 - 49 cm??? LV Ejection Fraction MOD BP 35.1 % >= 55 % LV Cardiac Index MOD BP 903.5 cm???/min???m??? LV Diastolic Volume MOD 4C 53.9 cm??? LV Systolic Volume MOD 4C 39.3 cm??? LV Ejection Fraction MOD 4C 27.0 % LV Cardiac Index MOD 4C 567.9 cm???/min???m??? LV Diastolic Length 4C 8.1 cm LV Systolic Length 4C 7.0 cm LV Diastolic Volume MOD 2C 74.0 cm??? LV Systolic Volume MOD 2C 46.6 cm??? LV Ejection Fraction MOD 2C 37.0 % LV Cardiac Index MOD 2C 1067.6 cm???/min???m??? LV Diastolic Length 2C 7.4 cm LV Systolic Length 2C 7.1 cm LA Volume 44.2 cm??? 18 - 58 / 22 - 52 cm??? Ascending Aorta Diameter 3.3 cm DOPPLER AV Peak Velocity 170.5 cm/s AV Peak Gradient 11.6 mmHg LVOT Peak Velocity 56.3 cm/s LVOT Peak Gradient 1.3 mmHg AV Area Cont Eq pk 1.8 cm??? MR Peak Velocity 252.5 cm/s MR Peak Gradient 25.5 mmHg Mitral E Point Velocity 84.0 cm/s Mitral A Point Velocity 55.3 cm/s Mitral E to A Ratio 1.5 MV Deceleration Time 95.6 ms MV E' Velocity 7.6 cm/s Mitral E to MV E' Ratio 11.0 TR Peak Velocity 327.9 cm/s TR Peak Gradient 43.0 mmHg Right Ventricular Systolic Press 48.0 mmHg FINDINGS Left Ventricle Normal LV size . Mildly increased septal wall thickness. Moderately decreased left ventricular ejection fraction. Left ventricular ejection fraction is estimated at 45-50%. Right Ventricle Severe right ventricular dilatation. RVSP =50mmhg. Right Atrium Mild right atrial dilatation. Left Atrium Normal left atrial size. Mitral Valve Structurally normal mitral valve. Mild to moderate MR. Aortic Valve Aortic valve not well visualized. Mild to moderate AV calcification. No aortic valve stenosis or regurgitation. Tricuspid Valve Tricuspid valve not well visualized. Pulmonic Valve Pulmonic valve not well visualized. Mild tomoderate PI. Pericardium Grossly normal. Aorta Normal size aortic root and proximal ascending aorta. CONCLUSIONS Left ventricular ejection fraction 45-50% Severe right ventricular dilation RVSP 48 Mild to moderate mitral regurgitation Previewed by: Dr. Arvind Conway DO (Electronically Signed) Final Date: 04 January 2023 11:54
--- NOTE | 2023-01-04 15:36 | US ---
EXAMINATION TYPE: US venous doppler duplex LE DATE OF EXAM: 01/04/2023 10:44 AM COMPARISON: NONE CLINICAL INDICATION: Male, 87 years old with history of PE; PE. On IV heparin. Patient states left ankle swelling that comes and goes. Portable EC exam SIDE PERFORMED: Bilateral TECHNIQUE: The lower extremity deep venous system is examined utilizing real time linear array sonog emily with graded compression, doppler sonography and color-flow sonography. VESSELS IMAGED: Common Femoral Vein Deep Femoral Vein Greater Saphenous Vein * Femoral Vein Popliteal Vein Small Saphenous Vein * Proximal Calf Veins (* superficial vessels) Right Leg and Left Leg: Travel Registered Nurse [facility] notes: Possible bilateral PTV's clot, unable to compress. Otherwise, negative for DVT. IMPRESSION: There is noncompressibility of the bilateral posterior tibial veins suggesting underlying DVT here.
[2023-01-04] MEDS: ARTIFICIAL TEARS-HYPROMELLOSE DROPS 15 ML BTL BOTH EYES SCH ×3 (17:05→22:30)
[2023-01-04] MEDS: LISINOPRIL-HCTZ 20-12.5 MG 1 EACH TAB PO SCH (17:05)
--- NOTE | 2023-01-04 17:17 | P.PN ---
Subjective Progress Note Date: 01/04/23 Patient is a 87-year-old male with a PMH of hypertension who presents to the emergency room with complaints of shortness of breath. The patient reports that he has been experiencing gradually worsening shortness of breath over the past 1 month. He reports that the breathing significantly worsened over the past few days, which prompted him to come to the emergency room. He also reports a left lateral pleuritic chest discomfort, 4 out of 10 at maximal intensity, nonradiating, with no exacerbating features. Patient reports he went on a trip to [place] earlier in the month but is unsure if that is exactly when his symptoms started. Reports long-standing history of bilateral lower extremity pitting edema, with left slightly greater than right. Denied lower extremity pain. Denied experiencing fever, chills, cough, abdominal pain, nausea, vomiting, diaphoresis. In the emergency room, upon arrival, the patient's vitals were SpO2 93% on room air, BP 104/68, pulse 98, and temp 97.5F. CT chest angiogram for PE revealed bilateral pulmonary emboli with extensive involvement with severe burden of clot on the right with findings suggestive of right heart strain. EKG revealed sinus tachycardia 103 bpm with first-degree AV block with left axis deviation and right bundle branch block. The laboratory evaluation was reviewed and revealed a troponin of 0.033 proBNP 6560. 01/04 Patient was seen and examined. He reports no more chest pain. Shortness of breath has improved. CBC is unremarkable. APTT is 146.9. BMP shows sodium of 136, bicarb of 21 and glucose 102. Echocardiogram shows EF of 45-50% with severe right ventricular dilatation. Venous Doppler positive for DVT bilateral posterior tibial veins. General: non toxic, no distress, appears at stated age Derm: warm, dry Head: atraumatic, normocephalic, symmetric Eyes: EOMI, no lid lag, anicteric sclera Cardiovascular: S1S2 reg, no murmur Lungs: CTA bilateral, no rhonchi, no rales , no accessory muscle use Ext: no gross muscle atrophy, no edema, no contractures Neuro: no focal neuro deficits Psych: Alert, oriented, appropriate affect Submassive bilateral PE Acute hypoxic respiratory failure secondary to above Chronic conditions: Hypertension Based on my assessment of this patient, this patient meets a high complexity level of care. Patient has an acute diagnosis of PE that poses a threat to life or bodily funct ion. Submassive bilateral PE: Likely provoked due to travel. Continue Heparin drip for one day. Anticipate transition to oral anticoagulant tomorrow. Appreciate vascular surgery recommendations. Acute hypoxic respiratory failure secondary to above: Supplemental O2 to maintain O2 saturation greater than 92%. I have reviewed the following bmw sales consultant notes: Vascular surgery note reviewed. I have reviewed the results of the following tests: CBC, BMP, APTT, echocardiogram, venous Doppler. I have ordered the following tests: APTT ordered for tomorrow morning. I have discussed the care of this patient with the following independent historian: I have independently interpreted the following test below: I have discussed the management of this patient with the following physician: Objective - Vital Signs Vital signs: Vital Signs Temp 98 F 01/04/23 12:07 Pulse 93 01/04/23 12:07 Resp 20 01/04/23 14:00 BP 159/100 01/04/23 12:07 Pulse Ox 96 01/04/23 12:07 FiO2 Intake & Output 01/03/23 01/04/23 01/04/23 18:59 06:59 18:59 Intake Total 166.068 76.629 Output Total 400 Balance 166.068 -323.371 Weight 102.512 kg 102.512 kg Intake: Intake, IV Titration 166.068 76.629 Amount Heparin Sod,Pork in 0.45% 166.068 76.629 NaCl 25,000 unit In 0.45 % NaCl 1 250ml.bag @ 18 UNITS/KG/HR 18.452 mls/hr IV .[id number] [facility] Rx#: [id number] Output: Urine 400 Other: Voiding Method Urinal - Labs CBC & Chem 7: 01/04/23 02:46 01/04/23 02:46 Labs: Abnormal Lab Results - Last 24 Hours (Table) 01/04/23 01/04/23 01/04/23 Range/Units 02:46 02:46 11:26 APTT 146.9 H* 54.2 H (22.0-30.0) sec Sodium 136 L (137-145) mmol/L Carbon Dioxide 21 L (22-30) mmol/L Glucose 102 H (74-99) mg/dL
[2023-01-04] MEDS: METOPROLOL TARTRATE 25 MG TAB PO SCH (20:19)
[2023-01-04] MEDS ORDERED: MAGNESIUM OXIDE 400 MG TAB PO SCH (21:00)
[2023-01-04 21:36] VITALS: RESP 18
[2023-01-05] MEDS: HEPARIN SOD,PORK IN 0.45% NACL 25,000 UNIT in 0.45% NACL 1 250ML.BAG IV SCH (04:43)
[2023-01-05] MEDS ORDERED: LISINOPRIL-HCTZ 20-12.5 MG 1 EACH TAB PO SCH (09:00)
[2023-01-05] MEDS: LISINOPRIL-HCTZ 20-12.5 MG 1 EACH TAB PO SCH (09:41)
[2023-01-05] MEDS: ARTIFICIAL TEARS-HYPROMELLOSE DROPS 15 ML BTL BOTH EYES SCH (09:41)
[2023-01-05] MEDS: METOPROLOL TARTRATE 25 MG TAB PO SCH (09:41)
[2023-01-05 10:58] VITALS: BP 137/63; PULSE 86; TEMP 97.9
--- NOTE | 2023-01-05 13:25 | P.DS ---
Providers Date of admission: 01/03/23 19:22 Expected date of discharge: 01/05/23 Attending physician: Andrés Ch MD Consults: 01/03/23 19:19 Consult Physician Urgent Consulting Provider: Jluis Khalil Consult Reason/Comments: Bilateral PE with possible heart strain Do you want consulting provider notified?: Yes Primary care physician: [facility] Hospital Course: Patient is a 87-year-old male with a PMH of hypertension who presents to the emergency room with complaints of shortness of breath. The patient reports that he has been experiencing gradually worsening shortness of breath over the past 1 month. He reports that the breathing significantly worsened over the past few days, which prompted him to come to the emergency room. He also reports a left lateral pleuritic chest discomfort, 4 out of 10 at maximal intensity, nonradiating, with no exacerbating features. Patient reports he went on a trip to [place] earlier in the month but is unsure if that is exactly when his symptoms started. Reports long-standing history of bilateral lower extremity pitting edema, with left slightly greater than right. Denied lower extremity pain. Denied experiencing fever, chills, cough, abdominal pain, nausea, vomiting, diaphoresis. In the emergency room, upon arrival, the patient's vitals were SpO2 93% on room air, BP 104/68, pulse 98, and temp 97.5F. CT chest angiogram for PE revealed bilateral pulmonary emboli with extensive involvement with severe burden of clot on the right with findings suggestive of right heart strain. EKG revealed sinus tachycardia 103 bpm with first-degree AV block with left axis deviation and right bundle branch block. The laboratory evaluation was reviewed and revealed a troponin of 0.033 proBNP 6560. 01/04 Patient was seen and examined. He reports no more chest pain. Shortness of breath has improved. CBC is unremarkable. APTT is 146.9. BMP shows sodium of 136, bicarb of 21 and glucose 102. Echocardiogram shows EF of 45-50% with severe right ventricular dilatation. Venous Doppler positive for DVT bilateral posterior tibial veins. 01/05 Patient was seen and examined with Roseanne PACKAGING DESIGN ENGINEER. and daughter at bedside. Decision made not to pursue ECOS after discussion with family and Dr. Khalil yesterday. Patient reports SOB with ambulation but otherwise feels well. Plans to to home O2 eval. He will be transitioned to Eliquis today. He is advised to follow up with his PCP within 1-[address] Khalil within 2 weeks of discharge. Risks and benefits of Eliquis discussed with the patient including risk of bleeding. Pertinent studies as above. General: non toxic, no distress, appears at stated age Derm: warm, dry Head: atraumatic, normocephalic, symmetric Eyes: EOMI, no lid lag, anicteric sclera Cardiovascular: S1S2 reg, no murmur Lungs: CTA bilateral, no rhonchi, no rales , no accessory muscle use Ext: no gross muscle atrophy, no edema, no contractures Neuro: no focal neuro deficits Psych: Alert, oriented, appropriate affect Discharge Diagnosis: Submassive bilateral PE Acute hypoxic respiratory failure secondary to above Chronic conditions: Hypertension This complex discharge took 35 minutes to complete. Patient Condition at Discharge: Stable Plan - Discharge Summary Discharge Rx Participant: No New Discharge Prescriptions: New Apixaban [Eliquis Starter Pack (for VTE)] 5 - 10 mg PO DIRECTED 30 Days #1 each Continue Magnesium Gluconate [Magonate] 500 mg PO HS Vit C/E/Zn/Coppr/Lutein/Zeaxan [Preservision Areds 2 Softgel] 1 cap PO DAILY Metoprolol Tartrate [Lopressor] 25 mg PO BID Carboxymethylcellulose Sodium [Refresh Tears] 1 drop BOTH EYES QID Lisinopril-Hctz 20-12.5 mg [Zestoretic 20-12.5] 1 tab PO DAILY Eylea BOTH EYES QMONTHLY Discontinued Aspirin EC [Ecotrin Low Dose] 81 mg PO Q2D Discharge Medication List Magnesium Gluconate [Magonate] 500 mg PO HS 10/06/17 [History] Vit C/E/Zn/Coppr/Lutein/Zeaxan [Preservision Areds 2 Softgel] 1 cap PO DAILY 10/06/17 [History] Carboxymethylcellulose Sodium [Refresh Tears] 1 drop BOTH EYES QID 01/03/23 [History] Lisinopril-Hctz 20-12.5 mg [Zestoretic 20-12.5] 1 tab PO DAILY 01/03/23 [History] Metoprolol Tartrate [Lopressor] 25 mg PO BID 01/03/23 [History] Eylea BOTH EYES QMONTHLY 01/04/23 [History] Apixaban [Eliquis Starter Pack (for VTE)] 5 - 10 mg PO DIRECTED 30 Days #1 each 01/05/23 [Rx] Follow up Appointment(s)/Referral(s): Jluis Khalil DO [STAFF PHYSICIAN] - 2 Weeks [facility],Clinic [Primary Care Provider] - 1-2 days Patient Instructions/Handouts: Pulmonary Embolism (DC), Deep Vein Thrombosis (DC) Activity/Diet/Wound Care/Special Instructions: Take Eliquis for atleast 3 months. Do not miss a dose. Follow up with Vascular surgery within 2 weeks. Ambulate as tolerated. Discharge Disposition: HOME SELF-CARE
[2023-01-05] MEDS ORDERED: APIXABAN 5 MG TAB PO STA (13:34)
--- NOTE | 2023-01-05 15:36 | P.PN ---
Subjective Progress Note Date: 01/05/23 Principal diagnosis: Pulmonary emboli, DVT Patient seen and examined today as a follow-up for bilateral pulmonary emboli. Patient also noted to have noncompressibility of bilateral posterior tibial veins suggesting underlying DVT. Patient is sitting up at the bedside he has 2 L nasal cannula on saturations are 92-97%. He's been up and ambulating to the bathroom. He is without any shortness of breath or chest pain at this time. He is currently on a heparin drip. Patient's status was discussed with both him and his yesterday with Dr. Khalil in the had all opted for medical management unless symptoms worsen. This afternoon patient able to ambulate with oxygen saturation at 96% room air. Heart rate 86 respiratory rate 18 blood pressure 137/63. Objective - Vital Signs Vital signs: Vital Signs Temp 98.1 F 01/05/23 04:00 Pulse 80 01/05/23 04:00 Resp 18 01/05/23 04:00 BP 131/77 01/05/23 04:00 Pulse Ox 92 L 01/05/23 04:00 FiO2 Intake & Output 01/04/23 01/05/23 01/05/23 18:59 06:59 18:59 Intake Total 194.629 250 180 Output Total 400 Balance -205.371 250 180 Weight 102.512 kg Intake: Intake, IV Titration 76.629 250 Amount Heparin Sod,Pork in 0.45% 76.629 250 NaCl 25,000 unit In 0.45 % NaCl 1 250ml.bag @ 18 UNITS/KG/HR 18.452 mls/hr IV .[id number] [facility] Rx#: [id number] Oral 118 180 Output: Urine 400 Other: Voiding Method Urinal Urinal # Voids 1 1 # Bowel Movements 1 - Labs CBC & Chem 7: 01/04/23 02:46 01/04/23 02:46 Labs: Abnormal Lab Results - Last 24 Hours (Table) 01/04/23 01/05/23 Range/Units 11:26 07:10 APTT 54.2 H 58.8 H (22.0-30.0) sec Assessment and Plan Assessment: 1. Bilateral pulmonary emboli 2. Bilateral lower extremity DVT 3. COPD 4. Hypertension Plan: 1. Continue symptomatic and supportive treatment 2. Encourage ambulation and hallway 3. Transition to oral anticoagulation 4. Patient is cleared from vascular surgery for discharge. Patient needs to follow-up with vascular surgery in the next 2-3 weeks for follow-up on PE and DVTs. It was discussed with patient increase risk of bleeding with anticoagulation, postpone any surgical procedures for a couple months if possible. Thank you for this consultation, we will sign off at this time. The impression and plan of care has been dictated as directed. Dr. Sung. I performed a history and examination of this patient, discussed the same with the dictator. I agree with the dictator's note ,documented as a scribe. Any additional findings or plans will be noted.
== END 2023-01-05 17:49 | disposition home or self-care (01) | DRG 175 ==
LOC: EC 13:13 → 3SCARD 19:22
PROVIDERS: ADMIT Internal Medicine; ATTEND Internal Medicine
DX: I26.99 Other pulmonary embolism without acute cor pulmonale (principal); J96.01 Acute respiratory failure with hypoxia; I82.443 Acute embolism and thrombosis of tibial vein, bilateral; I10 Essential (primary) hypertension; Z28.311 Partially vaccinated for COVID-19; I44.0 Atrioventricular block, first degree; I45.10 Unspecified right bundle-branch block; Z79.899 Other long term (current) drug therapy; Z86.79 Personal history of other diseases of the circulatory system; Z82.5 Family history of asthma and other chronic lower respiratory diseases; Z79.82 Long term (current) use of aspirin
CPT/HCPCS: 36415; 71046; 71275; 80053; 83735; 83880; 84484; 85025; 85379; 85610; 85730; 93005; 93306; 93970; 96365; 96366; 96375; 99291

== ENCOUNTER 2023-04-22 15:20 | Emergency (ER) | payer OTHER, MEDICARE ==
[2023-04-22 15:45] VITALS: TEMP 98.1
--- NOTE | 2023-04-22 16:45 | ED ---
GI Bleed HPI - General Source: patient Mode of arrival: ambulatory Limitations: no limitations <Tiffany Guerrier - Last Filed: 04/22/23 16:40> <Owen Serrano - Last Filed: 04/22/23 20:36> - General Chief complaint: GI Bleed Stated complaint: Blood in stool Time Seen by Provider: 04/22/23 16:40 - History of Present Illness Initial comments: Patient is an 88-year-old male presenting to the ER chief complaint of GI bleed pain. Patient states she's been having black tarry stools for the past 24 hours. Patient states he is taking liquids and did take some ibuprofen for dental pain. Patient denies any pain at this time patient denies any fevers, chills, night sweats. (Tiffany Guerrier) Dictation was produced using [employer] dictation software. please excuse any grammatical, word or spelling errors. Chief Complaint: 88-year-old male presents to the ER for GI bleed History of Present Illness: Patient is a 88-year-old male presents emergency department for GI bleed he does take anticoagulation medications for venous thromboembolism. Patient states he had bleeding noted in his stool starting at 1 AM last night. Patient denies abdominal pain. No rectal pain. Denies any history of GI bleed. Denies any lightheadedness when he feels a little fatigued. Following to be seen by me patient had a bowel movement and his stool light and up considerably. The ROS documented in this emergency department record has been reviewed and confirmed by me. Those systems with pertinent positive or negative responses have been documented in the HPI. All other systems are other negative and/or noncontributory. (Owen Serrano) - Related Data Home Medications Medication Instructions Recorded Confirmed Magnesium Gluconate [Magonate] 500 mg PO HS 10/06/17 01/03/23 Vit C/E/Zn/Coppr/Lutein/Zeaxan 1 cap PO DAILY 10/06/17 01/03/23 [Preservision Areds 2 Softgel] Carboxymethylcellulose Sodium 1 drop BOTH EYES QID 01/03/23 01/03/23 [Refresh Tears] Lisinopril-Hctz 20-12.5 mg 1 tab PO DAILY 01/03/23 01/03/23 [Zestoretic 20-12.5] Metoprolol Tartrate [Lopressor] 25 mg PO BID 01/03/23 01/03/23 Eylea BOTH EYES QMONTHLY 01/04/23 Previous Rx's Medication Instructions Recorded Apixaban [Eliquis Starter Pack 5 - 10 mg PO DIRECTED 30 Days 01/05/23 (for VTE)] #1 each Allergies Allergy/AdvReac Type Severity Reaction Status Date / Time No Known Allergies Allergy Verified 04/22/23 15:32 Review of Systems ROS Other: All systems not noted in ROS Statement are negative. <Tiffany Guerrier - Last Filed: 04/22/23 16:40> ROS Other: All systems not noted in ROS Statement are negative. <Owen Serrano - Last Filed: 04/22/23 20:36> ROS Statement: Those systems with pertinent positive or pertinent negative responses have been documented in the HPI. 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 macular degeneration Past Psychological History: No Psychological Hx Reported Smoking Status: Former smoker Past Alcohol Use History: Occasional Past Drug Use History: None Reported - Past Family History Father Family Medical History: COPD <Tiffany Guerrier - Last Filed: 04/22/23 16:40> General Exam Limitations: no limitations <Tiffany Guerrier - Last Filed: 04/22/23 16:40> <Owen Serrano - Last Filed: 04/22/23 20:36> - General Exam Comments Initial Comments: Visual Physical Exam Vital signs reviewed General: Well-appearing, nontoxic, no acute distress. Head: Normocephalic, atraumatic Eyes: PERRLA, EOMI ENT: Airway patent Chest: Nonlabored breathing Skin: No visual rash, normal skin tone Neuro: Alert and oriented 3 Musculoskeletal: No gross abnormalities (Tiffany Guerrier) PHYSICAL EXAM: General Impression: Alert and oriented x3, not in acute distress HEENT: Normocephalic atraumatic, extra-ocular movements intact, pupils equal and reactive to light bilaterally, mucous membranes moist. Cardiovascular: Heart regular rate and rhythm Chest: Able to complete full sentences, no retractions, no tachypnea Abdomen: abdomen soft, non-tender, non-distended, no organomegaly Musculoskeletal: Pulses present and equal in all extremities, no peripheral edema Motor: no focal deficits noted Neurological: CN II-XII grossly intact, no focal motor or sensory deficits noted Skin: Intact with no visualized rashes Psych: Normal affect and mood Rectal: Melanotic stool (Owen Serrano) Course Vital Signs 04/22/23 04/22/23 15:30 20:19 Temperature 98.1 F Pulse Rate 101 H 78 Respiratory 20 18 Rate Blood Pressure 121/89 103/54 O2 Sat by Pulse 99 96 Oximetry Medical Decision Making <Tiffany Guerrier - Last Filed: 04/22/23 16:40> - Lab Data Result diagrams: 04/22/23 17:56 04/22/23 17:56 <Owen Serrano - Last Filed: 04/22/23 20:36> - Medical Decision Making I performed the quick note portion of the exam. Electronically signed by Tiffany Guerrier PA-C (Tiffany Guerrier) Was pt. sent in by a medical professional or institution (LYUBOV Dee, SHOW OPERATIONS SUPERVISOR, urgent care, hospital, or retirement...) When possible be specific @ -No Did you speak to anyone other than the patient for history (EMS, parent, family, police, friend...)? What history was obtained from this source @ -No Did you review nursing and triage notes (agree or disagree)? Why? @ -I reviewed and agree with nursing and triage notes Were old charts reviewed (outside hosp., previous admission, EMS record, old EKG, old radiological studies, urgent care reports/EKG's, retirement records)? Report findings @ -No old charts were reviewed Differential Diagnosis (chest pain, altered mental status, abdominal pain women, abdominal pain men, vaginal bleeding, musculoskeletal, weakness, fever, dyspnea, syncope, headache, dizziness, GI bleed, back pain, seizure, CVA, palpatations, mental health)? @ -Differential GI Bleed: Esophageal varices, aortoenteric fistula, Joslyn-José, gastritis, peptic ulcer disease, diverticulosis, inflammatory bowel disease, hemorrhoids, fissure, colitis, malignancy, Meckels diverticulum, this is not meant to be an all- inclusive list. EKG interpreted by me (3pts min.). @ -None done X-rays interpreted by me (1pt min.). @ -None done CT interpreted by me (1pt min.). @ -CT of the abdomen and pelvis shows no acute processes U/S interpreted by me (1pt. min.). @ -None done What testing was considered but not performed or refused? (CT, X-rays, U/S, labs)? Why? @ -None What meds were considered but not given or refused? Why? @ -None Did you discuss the management of the patient with other professionals (professionals i.e. , PA, SHOW OPERATIONS SUPERVISOR, lab, RT, psych nurse, rn social work, clerical assigner, teacher, earth science technical officer, immigration case worker)? Give summary @ -No Was smoking cessation discussed for >3mins.? @ -No Was critical care preformed (if so, how long)? @ -No Were there social determinants of health that impacted care today? How? (Ho melessness, low income, unemployed, alcoholism, drug addiction, transportation, low edu. Level, literacy, decrease access to med. care, snf, rehab)? @ -No Was there de-escalation of care discussed even if they declined (Discuss DNR or withdrawal of care, Hospice)? DNR status @ -No What co-morbidities impacted this encounter? (DM, HTN, Smoking, COPD, CAD, Cancer, CVA, ARF, Chemo, Hep., AIDS, mental health diagnosis, sleep apnea, morbid obesity)? @ -None Was patient admitted / discharged? Hospital course, mention meds given and route, prescriptions, significant lab abnormalities, going to OR and other pertinent info. @ -88-year-old male presents to emergency Department for GI bleed. He has no rectal pain or abdominal pain. Labs unremarkable. Vital signs are stable. Patient has no symptoms of anemia. States that his GI bleeding has improved over the last 12 hours. Disposition options were discussed with patient. Should decision was made he is agreeable for discharge with strict return precautions. Also given outpatient referral to GI specialist. Patient told to stop taking his eliquis until directed further by his primary care provider. Undiagnosed new problem with uncertain prognosis? @ -No Drug Therapy requiring intensive monitoring for toxicity (Heparin, Nitro, Insulin, Cardizem)? @ -No Were any procedures done? @ -No Diagnosis/symptom? Acute, or Chronic, or Acute on Chronic? Uncomplicated (without systemic symptoms) or Complicated (systemic symptoms)? @ -GI bleed Side effects of treatment? @ -No Exacerbation, Progression, or Severe Exacerbation? @ -No Poses a threat to life or bodily function? How? (Chest pain, [place], [place], pneumonia, PE, COPD, DKA, ARF, appy, cholecystitis, CVA, Diverticulitis, Homicidal, Suicidal, threat to staff... and all critical care pts) @ -yes (Owen Serrano) - Lab Data Lab Results 04/22/23 04/22/23 04/22/23 Range/Units 17:56 17:56 17:56 WBC 8.1 (3.8-10.6) k/uL RBC 4.73 (4.30-5.90) m/uL Hgb 13.6 (13.0-17.5) gm/dL Hct 40.6 (39.0-53.0) % MCV 85.9 (80.0-100.0) fL MCH 28.7 (25.0-35.0) pg MCHC 33.4 (31.0-37.0) g/dL RDW 14.0 (11.5-15.5) % Plt Count 282 (150-450) k/uL MPV 8.1 Neutrophils % 61 % Lymphocytes % 31 % Monocytes % 5 % Eosinophils % 1 % Basophils % 1 % Neutrophils # 4.9 (1.3-7.7) k/uL Lymphocytes # 2.5 (1.0-4.8) k/uL Monocytes # 0.4 (0-1.0) k/uL Eosinophils # 0.1 (0-0.7) k/uL Basophils # 0.1 (0-0.2) k/uL PT 10.6 (10.0-12.5) sec INR 1.0 (<1.2) APTT 26.1 (22.0-30.0) sec Sodium 139 (137-145) mmol/L Potassium 4.0 (3.5-5.1) mmol/L Chloride 106 (98-107) mmol/L Carbon Dioxide 24 (22-30) mmol/L Anion Gap 9 mmol/L BUN 27 H (9-20) mg/dL Creatinine 0.99 (0.66-1.25) mg/dL Est GFR (CKD-EPI)AfAm 79 (>60 ml/min/1.73 sqM) Est GFR (CKD-EPI)NonAf 69 (>60 ml/min/1.73 sqM) Glucose 142 H (74-99) mg/dL Plasma Lactic Acid Ray (0.7-2.0) mmol/L Calcium 8.9 (8.4-10.2) mg/dL Magnesium 2.0 (1.6-2.3) mg/dL Total Bilirubin 0.9 (0.2-1.3) mg/dL AST 29 (17-59) U/L ALT 25 (4-49) U/L Alkaline Phosphatase 76 (38-126) U/L Troponin I (0.000-0.034) ng/mL Total Protein 7.3 (6.3-8.2) g/dL Albumin 4.0 (3.5-5.0) g/dL Lipase 73 (23-300) U/L Stool Occult Blood (Negative) Blood Type Blood Type Confirm Blood Type Recheck Bld Type Recheck Status Antibody Screen Spec Expiration Date 04/22/23 04/22/23 04/22/23 Range/Units 17:56 17:56 17:56 WBC (3.8-10.6) k/uL RBC (4.30-5.90) m/uL Hgb (13.0-17.5) gm/dL Hct (39.0-53.0) % MCV (80.0-100.0) fL MCH (25.0-35.0) pg MCHC (31.0-37.0) g/dL RDW (11.5-15.5) % Plt Count (150-450) k/uL MPV Neutrophils % % Lymphocytes % % Monocytes % % Eosinophils % % Basophils % % Neutrophils # (1.3-7.7) k/uL Lymphocytes # (1.0-4.8) k/uL Monocytes # (0-1.0) k/uL Eosinophils # (0-0.7) k/uL Basophils # (0-0.2) k/uL PT (10.0-12.5) sec INR (<1.2) APTT (22.0-30.0) sec Sodium (137-145) mmol/L Potassium (3.5-5.1) mmol/L Chloride (98-107) mmol/L Carbon Dioxide (22-30) mmol/L Anion Gap mmol/L BUN (9-20) mg/dL Creatinine (0.66-1.25) mg/dL Est GFR (CKD-EPI)AfAm (>60 ml/min/1.73 sqM) Est GFR (CKD-EPI)NonAf (>60 ml/min/1.73 sqM) Glucose (74-99) mg/dL Plasma Lactic Acid Ray 1.9 (0.7-2.0) mmol/L Calcium (8.4-10.2) mg/dL Magnesium (1.6-2.3) mg/dL Total Bilirubin (0.2-1.3) mg/dL AST (17-59) U/L ALT (4-49) U/L Alkaline Phosphatase (38-126) U/L Troponin I <0.012 (0.000-0.034) ng/mL Total Protein (6.3-8.2) g/dL Albumin (3.5-5.0) g/dL Lipase (23-300) U/L Stool Occult Blood (Negative) Blood Type Blood Type Confirm Blood Type Recheck No Previous Record Bld Type Recheck Status CABO Indicated Antibody Screen Spec Expiration Date 04/25/2023 - 235504/22/23 04/22/23 04/22/23 Range/Units 17:57 17:58 19:26 WBC (3.8-10.6) k/uL RBC (4.30-5.90) m/uL Hgb (13.0-17.5) gm/dL Hct (39.0-53.0) % MCV (80.0-100.0) fL MCH (25.0-35.0) pg MCHC (31.0-37.0) g/dL RDW (11.5-15.5) % Plt Count (150-450) k/uL MPV Neutrophils % % Lymphocytes % % Monocytes % % Eosinophils % % Basophils % % Neutrophils # (1.3-7.7) k/uL Lymphocytes # (1.0-4.8) k/uL Monocytes # (0-1.0) k/uL Eosinophils # (0-0.7) k/uL Basophils # (0-0.2) k/uL PT (10.0-12.5) sec INR (<1.2) APTT (22.0-30.0) sec Sodium (137-145) mmol/L Potassium (3.5-5.1) mmol/L Chloride (98-107) mmol/L Carbon Dioxide (22-30) mmol/L Anion Gap mmol/L BUN (9-20) mg/dL Creatinine (0.66-1.25) mg/dL Est GFR (CKD-EPI)AfAm (>60 ml/min/1.73 sqM) Est GFR (CKD-EPI)NonAf (>60 ml/min/1.73 sqM) Glucose (74-99) mg/dL Plasma Lactic Acid Ray (0.7-2.0) mmol/L Calcium (8.4-10.2) mg/dL Magnesium (1.6-2.3) mg/dL Total Bilirubin (0.2-1.3) mg/dL AST (17-59) U/L ALT (4-49) U/L Alkaline Phosphatase (38-126) U/L Troponin I (0.000-0.034) ng/mL Total Protein (6.3-8.2) g/dL Albumin (3.5-5.0) g/dL Lipase (23-300) U/L Stool Occult Blood Positive (Negative) Blood Type O Negative Blood Type Confirm O Negative Blood Type Recheck Bld Type Recheck Status Antibody Screen NEGATIVE Spec Expiration Date Disposition <Tiffany Guerrier - Last Filed: 04/22/23 16:40> Is patient prescribed a controlled substance at d/c from ED?: No Time of Disposition: 20:36 <Owen Serrano - Last Filed: 04/22/23 20:36> Clinical Impression: GI bleed Disposition: HOME SELF-CARE Condition: Fair Instructions (If sedation given, give patient instructions): Gastrointestinal Bleeding (ED) Additional Instructions: Return to the emergency department for any recurrence or worsening of bleeding, abdominal pain or feeling lightheaded or weak. These may be signs of continued blood loss. Do not take eliquis until directed further by her primary care doctor. Referrals: [facility],Clinic [Primary Care Provider] - 1-2 days Kelly Martinez MD [STAFF PHYSICIAN] - 1-2 days
[2023-04-22 18:19] LABS: Basophils # (A) 0.1 k/uL (0-0.2); Basophils % (A) 1 %; Eosinophils # (A) 0.1 k/uL (0-0.7); Eosinophils % (A) 1 %; HCT 40.6 % (39.0-53.0); HGB 13.6 gm/dL (13.0-17.5); Lymphocytes # (A) 2.5 k/uL (1.0-4.8); Lymphocytes % (A) 31 %; MCH 28.7 pg (25.0-35.0); MCHC 33.4 g/dL (31.0-37.0); MCV 85.9 fL (80.0-100.0); Mean Platelet Volume 8.1; Monocytes # (A) 0.4 k/uL (0-1.0); Monocytes % (A) 5 %; Neutrophils # (A) 4.9 k/uL (1.3-7.7); Neutrophils % (A) 61 %; Platelet Count 282 k/uL (150-450); RBC 4.73 m/uL (4.30-5.90); WBC 8.1 k/uL (3.8-10.6)
[2023-04-22 18:21] LABS: ALT 25 U/L (4-49); AST 29 U/L (17-59); African American GFR (CKD) 79 (>60 ml/min/1.73 sqM); Alkaline Phosphatase 76 U/L (38-126); Anion Gap 9 mmol/L; Blood Urea Nitrogen 27 mg/dL (9-20); Calcium 8.9 mg/dL (8.4-10.2); Carbon Dioxide 24 mmol/L (22-30); Chloride 106 mmol/L (98-107); Glucose 142 mg/dL (74-99); Lipase 73 U/L (23-300); Non-African American GFR(CKD) 69 (>60 ml/min/1.73 sqM); Sodium 139 mmol/L (137-145); Total Bilirubin 0.9 mg/dL (0.2-1.3); Total Protein 7.3 g/dL (6.3-8.2)
[2023-04-22 18:34] LABS: Partial Thromboplastin Time 26.1 sec (22.0-30.0); Prothrombin Time 10.6 sec (10.0-12.5)
--- NOTE | 2023-04-22 20:10 | CT ---
EXAMINATION TYPE: CT abdomen pelvis w con DATE OF EXAM: 04/22/2023 COMPARISON: Radiograph 03/07/2023 HISTORY: 88-year-old male with pain, blood in stool, hx of bone ca TECHNIQUE: Contiguous axial scanning of the abdomen and pelvis following administration of 100 ml Iso juvencio 370 IV contrast. Delayed images through the kidneys and coronal/sagittal reconstructions perform ed. CT DLP: 1542 mGycm Automated exposure control for dose reduction was used. FINDINGS: Heart borderline enlarged without pericardial effusion. Aortic valvular calcifications. Hazy dependen t atelectasis noted. No pleural effusion. Calcified granuloma posteromedial right base. There is a benign 2.6 cm left hepatic dome cyst. Portal venous system is patent. No biliary ductal di latation. Cholecystectomy clips. Adrenal glands, kidneys, atrophic pancreas show no gross abnormality. Small calcified granulomas with in the spleen. Mild atherosclerotic calcification infrarenal abdominal aorta. Tortuous common iliac arteries, ectati c up to 1.5 cm. No dilated small bowel, free fluid, or free air. No mesenteric or retroperitoneal lymphadenopathy. Appendix not clearly seen. No secondary findings of acute appendicitis in the right lower quadrant. There is liquid stool within the right side of the colon. Scattered colonic diverticulosis, extensive within the sigmoid colon. Note convincing pericolonic inflammatory change. Bladder nondistended but shows mild circumferential wall thickening. Prostate gland mildly enlarged a t 4.4 cm wide. No abnormal fluid collection in the pelvis or pelvic lymphadenopathy. Bones: Degenerative levoconvex scoliosis of the lumbar spine. Grade 1 anterolisthesis L4-L5. 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 Facet arthropathy greater towards the right. IMPRESSION: 1. GENERALIZED COLONIC DIVERTICULOSIS, EXTENSIVE WITHIN THE SIGMOID COLON. NO CONVINCING FINDINGS OF ACUTE DIVERTICULITIS. 2. Some liquid stool in the right side of the colon suggests diarrheal state. Correlate to exclude a mild enteritis. 3. Mild circumferential bladder wall thickening may be chronic for the patient. Correlate to exclude cystitis.
[2023-04-22 20:23] VITALS: BP 103/54; PULSE 78; RESP 18
== END 2023-04-22 20:51 | disposition home or self-care (01) ==
LOC: EC 15:20
DX: K92.2 Gastrointestinal hemorrhage, unspecified (principal); I10 Essential (primary) hypertension; Z87.891 Personal history of nicotine dependence; Z79.899 Other long term (current) drug therapy
CPT/HCPCS: 36415; 86900; 86901; 80053; 83605; 83690; 83735; 84484; 85025; 85610; 85730; 86850; 82272; 74177; 99285; Q9967

== ENCOUNTER 2024-03-12 11:25 | Day surgery (SDC) | payer MEDICARE, OTHER ==
[~2024-03-12 11:25] MED LIST: ALPRAZolam 0.25 MG TAB PO PRN; ALPRAZolam 0.5 MG TAB PO PRN; HEPARIN SODIUM,PORCINE (1 ML) 2,500 UNIT in SODIUM CHLORIDE 0.9% 250 ML IRRIGATION PRN; HEPARIN SODIUM,PORCINE 10,000 UNIT in SODIUM CHLORIDE 0.9% 1,000 ML IRRIGATION PRN; NITROGLYCERIN SL TABS 0.4 MG TAB SUBLINGUAL PRN
[2024-03-12] MEDS: SODIUM CHLORIDE 0.9% 1,000 ML in EMPTY BAG 1 BAG IV SCH (11:34)
[2024-03-12] MEDS: ASPIRIN 325 MG TAB PO STA (11:40)
[2024-03-12] MEDS: SODIUM CHLORIDE 0.9% 1,000 ML IV ONE (11:43)
[2024-03-12 11:55] VITALS: TEMP 97.6
[2024-03-12] MEDS: MIDAZOLAM 2 MG/2 ML VIAL IVP ONE ×3 (13:25→13:44)
[2024-03-12] MEDS: fentaNYL (PF) 50 MCG/ML 2 ML AMP IVP ONE ×2 (13:25→13:44)
[2024-03-12] MEDS: LIDOCAINE 1% INJ 10MG/ML (20 ML MDV) SQ ONE (13:26)
[2024-03-12] MEDS: VERAPAMIL SYRINGE (5 MG/10 ML) INTRAARTER ONE ×2 (13:30→13:43)
[2024-03-12] MEDS: HEPARIN SODIUM 1,000 UN/ML (10ML VL) IVP ONE (13:35)
[2024-03-12] MEDS: IOPAMIDOL-370 200ML BTL INJ ONE (14:07)
[2024-03-12 15:15] VITALS: RESP 16
--- NOTE | 2024-03-12 15:15 | P.CARDCATH ---
Description of Procedure: PROCEDURES PERFORMED: Left heart catheterization, bilateral coronary angiography, ultrasound guided arterial access INDICATION: Shortness breath with exertion concerning for unstable angina CONSENT:I have discussed the risks, benefits and alternative therapies for the above-mentioned procedure and for both sedation/analgesia as well as necessary blood product administration, if indicated, as they pertain to this patient. The patient has indicated understanding and acceptance of the risks and procedures discussed. PROCEDURE: After the risks, benefits and alternatives of the above mentioned procedure explained in detail with the patient, informed consent was obtained. Patient was taken to the catheterization lab and prepped and draped in usual fashion. Ultrasound guidance was used to assess for arterial access. 1% lidocaine was used to anesthetize the right radial artery. A 6-Zimbabwean sheath was placed in the right radial artery using modified Seldinger technique and ultrasound guidance. There was significant difficulty manipulating catheters secondary to subclavian tortuosity. The 0.035 wire was needed to work any the catheters. Attempted a GFR 5, KS to catheter for the RCA and then eventually a 6-Zimbabwean AL 0.75 guide with only subselective images able to be obtained. It appeared to be patent however without significant stenosis. Left coronary angiography was obtained with a 6-Zimbabwean FL4 catheter. A 5-Zimbabwean FR5 catheter was advanced in the left ventricle and pressure measurements were obtained. The right radial sheath was removed and a TR band was placed with hemostasis achieved. The patient tolerated the procedure well. Patient was transported back to the post catheterization holding area in stable condition. Conscious Sedation: Patient was monitored under the direct supervision of myself for conscious sedation using Versed and fentanyl for a total duration of 42 minutes HEMODYNAMICS: Aorta: 138/72 LV: 131/4, LVEDP 13 SELECTIVE CORONARY ARTERIOGRAPHY: LEFT MAIN: The left main is a large caliber vessel which bifurcates into the LAD and circumflex. There is a proximal left main 30% stenosis. LEFT ANTERIOR DESCENDING CORONARY ARTERY: LAD is a large caliber vessel which wraps around to the apex. There is proximal LAD 20-30% and a more focal 40% stenosis after a small to moderate caliber diagonal 3 branch. Otherwise there are mild luminal irregularities.. LEFT CIRCUMFLEX CORONARY ARTERY: Left circumflex is a moderate caliber vessel with mild 20-30% stenosis. RIGHT CORONARY ARTERY: The right coronary artery is a large caliber vessel which gives off a PDA and PLV branch and is the dominant vessel. There is mild 20-30% stenosis. The PDA is not fully visualize however appears to be patent. FINAL IMPRESSION: 1. CAD as described above including 30% left main stenosis, 40% mid LAD and otherwise mild 20-30% circumflex and RCA stenosis. 2. Normal left sided filling pressures 3. Significant tortuosity of the right subclavian PLAN: 1. Aggressive risk factor modification per most recent ACC/AHA guidelines. 2. Follow-up in the office in 1-2 weeks.
[2024-03-12 15:53] VITALS: PULSE 71
[2024-03-12 17:29] VITALS: BP 159/82
== END 2024-03-12 17:29 | disposition home or self-care (01) ==
LOC: CATHCVL 11:25
PROVIDERS: ATTEND Internal Medicine
DX: I25.10 Atherosclerotic heart disease of native coronary artery without angina pectoris
CPT/HCPCS: 93458

== ENCOUNTER → 2024-03-23 | Outpatient (CLI) | payer OTHER ==
[2024-03-23 11:41] LABS: African American GFR (CKD) 70 (>60 ml/min/1.73 sqM); Blood Urea Nitrogen 18 mg/dL (9-20); Non-African American GFR(CKD) 60 (>60 ml/min/1.73 sqM)
--- NOTE | 2024-03-23 12:31 | CT ---
EXAMINATION TYPE: CT angio chest DATE OF EXAM: 03/23/2024 12:16 PM COMPARISON: 01/03/2023 HISTORY: c/o SOB CT DLP: 888.5 mGycm Automated exposure control for dose reduction was used. CONTRAST: CTA scan of the thorax is performed without and with IV Contrast, patient injected with 100 mL of Iso juvencio 370, pulmonary embolism protocol. FINDINGS: LUNGS: There are 2 stable nodules in the right lower lobe posteriorly the largest of which measures a pproximately 8 mm. There is no new or suspicious lung mass or nodule. There is no airspace consolidation. There is no abnormal interstitial density. There is no mediastinal, hilar or axillary adenopathy. There is no pleural effusion, pleural thickening or pneumothorax. The pulmonary emboli seen in the left upper lobe and right lower lobe have cleared in the interval. T here are no pulmonary emboli on the current exam. Limited scanning through the upper abdomen reveals a stable 3.2 cm left hepatic cyst. No focal osseous lesions are seen. IMPRESSION: 1. Pulmonary emboli seen on the prior study have resolved. There are no pulmonary emboli currently. 2. Stable right lower lobe lung nodules as described above. 3. No acute cardiopulmonary disease. [facility], , 03/23/2024 12:28 PM
== END | disposition home or self-care (01) ==
LOC: RADCTMAIN 10:33
PROVIDERS: ATTEND Surgery
CPT/HCPCS: 36415; 71275; 82565; 84520

== ENCOUNTER 2024-10-03 16:03 | Inpatient (IN) | payer OTHER, MEDICARE ==
--- NOTE | 2024-10-03 16:32 | ED ---
Chest Pain HPI - General Chief Complaint: Chest Pain Stated Complaint: Palpitations Time Seen by Provider: 10/03/24 16:07 Source: EMS Mode of arrival: EMS Limitations: no limitations - History of Present Illness Initial Comments: 89-year-old male with past medical history of DVT, hypertension who presents to the emergency department from [facility]. Patient was at pulmonary rehab and was feeling short of breath with hypertension. He was sent to the emergency department and evaluated. Patient was found to have nonsustained V. tach. He was started on amiodarone and transferred to our hospital. Patient has no complaints at this time. Laboratory studies were within normal limits including a negative troponin. Chest x-ray was completed which demonstrated atelectasis. Patient transferred to our facility as he follows with Dr. Conway - Related Data Home Medications Medication Instructions Recorded Confirmed Magnesium Gluconate [Magonate] 500 mg PO HS 10/06/17 03/12/24 Vit C/E/Zn/Coppr/Lutein/Zeaxan 1 cap PO DAILY 10/06/17 03/12/24 [Preservision Areds 2 Softgel] Apixaban [Eliquis Starter Pack 5 mg PO BID 03/07/24 03/12/24 (for VTE)] lisinopriL [Zestril] 20 mg PO DAILY 03/07/24 03/12/24 Allergies Allergy/AdvReac Type Severity Reaction Status Date / Time No Known Allergies Allergy Verified 03/07/24 09:12 Review of Systems ROS Statement: Those systems with pertinent positive or pertinent negative responses have been documented in the HPI. ROS Other: All systems not noted in ROS Statement are negative. Past Medical History Past Medical History: Cancer, Deep Vein Thrombosis (DVT), Hypertension, Pulmonary Embolus (PE) Additional Past Medical History / Comment(s): shortness of breath. 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 macular degeneration Past Anesthesia/Blood Transfusion Reactions: No Reported Reaction Past Psychological History: No Psychological Hx Reported Smoking Status: Former smoker Past Alcohol Use History: None Reported Past Drug Use History: None Reported - Past Family History Father Family Medical History: COPD General Exam Limitations: no limitations General appearance: alert, in no apparent distress Head exam: Present: atraumatic, normocephalic, normal inspection Eye exam: Present: normal appearance, PERRL, EOMI. Absent: scleral icterus, conjunctival injection, periorbital swelling ENT exam: Present: normal exam, mucous membranes moist Neck exam: Present: normal inspection. Absent: tenderness, meningismus, lymphadenopathy Respiratory exam: Present: normal lung sounds bilaterally. Absent: respiratory distress, wheezes, rales, rhonchi, stridor Cardiovascular Exam: Present: regular rate, normal rhythm, normal heart sounds. Absent: systolic murmur, diastolic murmur, rubs, gallop, clicks GI/Abdominal exam: Present: soft, normal bowel sounds. Absent: distended, tenderness, guarding, rebound, rigid Extremities exam: Present: normal inspection, full ROM, normal capillary refill. Absent: tenderness, pedal edema, joint swelling, calf tenderness Back exam: Present: normal inspection Neurological exam: Present: alert, oriented X3, CN II-XII intact Psychiatric exam: Present: normal affect, normal mood Skin exam: Present: warm, dry, intact, normal color. Absent: rash Course Vital Signs 10/03/24 10/03/24 16:06 16:18 Temperature 97.8 F Pulse Rate 94 Pulse Rate [ 84 [employer] ] Respiratory 18 Rate Blood Pressure 146/95 O2 Sat by Pulse 98 Oximetry Chest Pain MDM - MDM Was pt. sent in by a medical professional or institution (LYUBOV Dee, DIRECTOR DRUG, urgent care, hospital, or usp...) When possible be specific @ -[No] Did you speak to anyone other than the patient for history (EMS, parent, family, police, friend...)? What history was obtained from this source @ -[No] Did you review nursing and triage notes (agree or disagree)? Why? @ -[I reviewed and agree with nursing and triage notes] Were old charts reviewed (outside hosp., previous admission, EMS record, old EKG, old radiological studies, urgent care reports/EKG's, usp records)? Report findings @ -[No old charts were reviewed] Differential Diagnosis (chest pain, altered mental status, abdominal pain women, abdominal pain men, vaginal bleeding, weakness, fever, dyspnea, syncope, headache, dizziness, GI bleed, back pain, seizure, CVA, palpatations, mental health, musculoskeletal)? @ -[not applicable] EKG interpreted by me (3pts min.). @ -Yes and demonstrates sinus rhythm with frequent PVCs. Rate of 82. ME interval 200. QRS 177. QTc of 463. No acute ST segment elevations or d epressions X-rays interpreted by me (1pt min.). @ -[None done] CT interpreted by me (1pt min.). @ -[None done] U/S interpreted by me (1pt. min.). @ -[None done] What testing was considered but not performed or refused? (CT, X-rays, U/S, labs)? Why? @ -[None] What meds were considered but not given or refused? Why? @ -[None] Did you discuss the management of the patient with other professionals (professionals i.e. , PA, DIRECTOR DRUG, lab, RT, psych nurse, foster care social worker, imaging analyst, teacher, community relations officer, renal case manager)? Give summary @ -[No] Was smoking cessation discussed for >3mins.? @ -[No] Was critical care preformed (if so, how long)? @ -[No] Were there social determinants of health that impacted care today? How? (Homelessness, low income, unemployed, alcoholism, drug addiction, transport ation, low edu. Level, literacy, decrease access to med. care, long term, rehab)? @ -[No] Was there de-escalation of care discussed even if they declined (Discuss DNR or withdrawal of care, Hospice)? DNR status @ -[No] What co-morbidities impacted this encounter? (DM, HTN, Smoking, COPD, CAD, Cancer, CVA, ARF, Chemo, Hep., AIDS, mental health diagnosis, sleep apnea, morbid obesity)? @ -[None] Was patient admitted / discharged? Hospital course, mention meds given and route, prescriptions, significant lab abnormalities, going to OR and other pertinent info. @ -[hospital course] Undiagnosed new problem with uncertain prognosis? @ -[No] Drug Therapy requiring intensive monitoring for toxicity (Heparin, Nitro, Insulin, Cardizem)? @ -[No] Were any procedures done? @ -[No] Diagnosis/symptom? @ -[default] Acute, or Chronic, or Acute on Chronic? @ -[default] Uncomplicated (without systemic symptoms) or Complicated (systemic symptoms)? @ -[default] Side effects of treatment? @ -[No] Exacerbation, Progression, or Severe Exacerbation? @ -[No] Poses a threat to life or bodily function? How? (Chest pain, [place], AR, pneumonia, PE, COPD, DKA, ARF, appy, cholecystitis, CVA, Diverticulitis, Homicidal, Suicidal, threat to staff... and all critical care pts) @ -[No] Disposition Clinical Impression: Non-sustained ventricular tachycardia Disposition: ADMITTED IP TO THIS [facility] Condition: Stable Is patient prescribed a controlled substance at d/c from ED?: No Referrals: Pedro Muniz DO [Primary Care Provider] - 1-2 days Time of Disposition: 17:24 Decision to Admit Reason: Admit from EC Decision Date: 10/03/24 Decision Time: 17:24
[2024-10-03] MEDS: AMIODARONE 360 MG in DEXTROSE 5% IN WATER 200 ML IV ONE (16:48)
[2024-10-03 16:55] LABS: Basophils # (A) 0.08 10*3/uL (0.00-0.10); Basophils % (A) 1.1 %; Eosinophils # (A) 0.13 10*3/uL (0.04-0.35); Eosinophils % (A) 1.9 %; HCT 40.7 % (39.6-50.0); HGB 14.1 g/dL (13.0-17.0); Lymphocytes # (A) 1.95 10*3/uL (0.90-5.00); Lymphocytes % (A) 27.8 %; MCH 28.9 pg (27.0-32.0); MCHC 34.6 g/dL (32.0-37.0); MCV 83.4 fL (80.0-97.0); Monocytes # (A) 0.48 10*3/uL (0.20-1.00); Monocytes % (A) 6.8 %; Neutrophils # (A) 4.35 10*3/uL (1.80-7.70); Neutrophils % (A) 62.1 %; Platelet Count 276 10*3/uL (140-440); RBC 4.88 10*6/uL (4.40-5.60); RDW 14.1 % (11.5-14.5); WBC 7.01 10*3/uL (4.50-10.00)
[2024-10-03 17:13] LABS: ALT 23 U/L (4-49); AST 24 U/L (17-59); African American GFR (CKD) 90 (>60 ml/min/1.73 sqM); Albumin 3.7 g/dL (3.5-5.0); Alkaline Phosphatase 99 U/L (38-126); Anion Gap 9 mmol/L; Blood Urea Nitrogen 17 mg/dL (9-20); Calcium 8.9 mg/dL (8.4-10.2); Carbon Dioxide 24 mmol/L (22-30); Chloride 105 mmol/L (98-107); Glucose 101 mg/dL (74-99); Non-African American GFR(CKD) 77 (>60 ml/min/1.73 sqM); Potassium 3.8 mmol/L (3.5-5.1); Sodium 138 mmol/L (137-145); Total Bilirubin 0.6 mg/dL (0.2-1.3); Total Protein 6.9 g/dL (6.3-8.2)
[2024-10-03] MEDS ORDERED: NALOXONE 0.4 MG/ML 1 ML VIAL IV PRN (17:24)
[2024-10-03] MEDS: AMIODARONE 450 MG in DEXTROSE 5% IN WATER 250 ML IV SCH (23:59)
--- NOTE | 2024-10-04 02:50 | P.HPIM ---
History of Present Illness H&P Date: 10/03/24 89-year-old male with hypertension history of venous thromboembolism Patient coming in for evaluation of progressive shortness of breath over the past 2 weeks he reports he gets winded just walking to the mailbox denies any shortness of breath at rest denies any orthopnea or paroxysmal nocturnal dyspnea denies any coughing denies any fevers or chills Today he was at rehab when they found that his blood pressure was elevated so he was sent to the ER over there at [facility] and he was found to be short of breath and having nonsustained V. tach he was started on amiodarone and was sent to our hospital for cardiology evaluation Patient denies any history of palpitations or arrhythmia in the past he reports history of blood clots first 1 happened about 2 years ago when he was on a trip since then he has been on blood thinners. Denies any GI bleeding denies any headache denies any vision changes denies any chest pain abdominal pain denies any urinary or bowel habit changes Patient denies tobacco smoking illicit drugs or heavy alcohol review of systems Pertinent positives as noted in HPI. All other systems were reviewed and are negative on exam Constitutional: No acute distress, conversant, pleasant Eyes: Anicteric sclerae, moist conjunctiva, Pupils equal round reactive to light ENMT: NC/AT Oropharynx clear, no erythema, or exudates Neck: Supple, no masses, or JVD No carotid bruits No thyromegaly Lungs: Clear to auscultation Clear to percussion Normal respiratory effort, no accessory muscle use Cardiovascular: Heart regular in rate and rhythm, No murmurs, gallops, or rubs No peripheral edema Abdominal: Soft Nontender, no guarding, rebound or rigidity Abdomen moving with respiration Normoactive bowel sounds Extremities: No digital cyanosis No clubbing Pedal pulses intact and symmetrical Radial pulses intact and symmetrical No calf tenderness Psychiatric: Alert and oriented to person, place and time Appropriate affect fair judgement Neuro Muscles Strength 5/5 in all 4 extremities Sensation to light touch grossly present throughout Cranial nerves II-XII grossly intact Past Medical History Past Medical History: Cancer, Deep Vein Thrombosis (DVT), Hypertension, Pulmonary Embolus (PE) Additional Past Medical History / Comment(s): shortness of breath (pullmonary rehab). 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 macular degeneration Past Anesthesia/Blood Transfusion Reactions: No Reported Reaction Past Psychological History: No Psychological Hx Reported Smoking Status: Former smoker Past Alcohol Use History: None Reported Additional Past Alcohol Use History / Comment(s): quit 40 plus years ago Past Drug Use History: None Reported - Past Family History Father Family Medical History: COPD Medications and Allergies Home Medications Medication Instructions Recorded Confirmed Type Magnesium Gluconate [Magonate] 500 mg PO HS 10/06/17 10/03/24 History Vit C/E/Zn/Coppr/Lutein/Zeaxan 1 cap PO BID 10/06/17 10/03/24 History [Preservision Areds 2 Softgel] lisinopriL [Zestril] 20 mg PO DAILY 03/07/24 10/03/24 History Apixaban [Eliquis] 5 mg PO BID 10/03/24 10/03/24 History Carboxymethylcellulose 1% Opth Gel 1 drop BOTH EYES QID 10/03/24 10/03/24 History Furosemide [Lasix] 20 mg PO DAILY 10/03/24 10/03/24 History Allergies Allergy/AdvReac Type Severity Reaction Status Date / Time No Known Allergies Allergy Verified 10/03/24 17:26 Physical Exam Vitals: Vital Signs Temp Pulse Pulse Resp BP BP Pulse Ox 10/04/24 00:00 98.5 F 70 19 131/68 93 L 10/03/24 18:34 82 18 161/77 96 10/03/24 16:18 84 10/03/24 16:06 97.8 F 94 18 146/95 98 Intake and Output 10/03/24 10/03/24 10/04/24 14:59 22:59 06:59 Output Total 300 Balance -300 Output: Urine 300 Other: Voiding Method Urinal Weight 97.069 kg Results CBC & Chem 7: 10/03/24 16:42 10/03/24 16:42 Labs: Abnormal Lab Results - Last 24 Hours (Table) 10/03/24 Range/Units 16:42 Glucose 101 H (74-99) mg/dL Thrombosis Risk Factor Assmnt - Choose All That Apply Each Risk Factor Represents 3 Points: Age 75 years or older, History of DVT/PE Other congenital or acquired thrombophilia - If yes, enter type in comment: No Thrombosis Risk Factor Assessment Total Risk Factor Score: 6 Thrombosis Risk Factor Assessment Level: High Risk Assessment and Plan Assessment: 89-year-old male with hypertension and venous thromboembolism on blood thinner coming in due to incidental finding of nonsustained V. tach was symptomatic with shortness of breath I discussed case with ED doctor and accepted the admission for nonsustained V. tach for cardiology evaluation with anticipated length of stay less than 2 midnights Nonsustained V. tach Electrolytes unremarkable sodium 138 potassium 3.8 BUN 17 creatinine 0.8 White count to 7 unremarkable Hemoglobin 14 unremarkable Troponins negative x 2 Cardiology consult EKG showing sinus rhythm with occasional PVCs no acute ST changes Continue with amiodarone History of venous thromboembolism Continue with blood thinners Eliquis 5 mg twice daily Hypertension uncontrolled Continue with lisinopril Monitor blood pressure closely if continues to have elevated readings we will adjust his medications By possibly increasing lisinopril to 40 mg Full code DVT prophylaxis on Eliquis for history of DVT
[2024-10-04 08:23] LABS: Basophils # (A) 0.06 10*3/uL (0.00-0.10); Eosinophils # (A) 0.22 10*3/uL (0.04-0.35); Eosinophils % (A) 3.6 %; HCT 40.3 % (39.6-50.0); HGB 13.5 g/dL (13.0-17.0); Lymphocytes % (A) 30.8 %; MCH 28.7 pg (27.0-32.0); MCHC 33.5 g/dL (32.0-37.0); MCV 85.6 fL (80.0-97.0); Mean Platelet Volume 9.8 fL (9.5-12.2); Monocytes # (A) 0.47 10*3/uL (0.20-1.00); Monocytes % (A) 7.6 %; Neutrophils % (A) 56.8 %; Platelet Count 266 10*3/uL (140-440); RBC 4.71 10*6/uL (4.40-5.60); RDW 14.3 % (11.5-14.5); WBC 6.16 10*3/uL (4.50-10.00)
[2024-10-04 08:46] LABS: African American GFR (CKD) 83 (>60 ml/min/1.73 sqM); Anion Gap 5 mmol/L; Blood Urea Nitrogen 15 mg/dL (9-20); Calcium 8.8 mg/dL (8.4-10.2); Carbon Dioxide 29 mmol/L (22-30); Chloride 104 mmol/L (98-107); Glucose 109 mg/dL (74-99); Magnesium 1.9 mg/dL (1.6-2.3); Non-African American GFR(CKD) 72 (>60 ml/min/1.73 sqM); Potassium 4.3 mmol/L (3.5-5.1); Sodium 138 mmol/L (137-145)
[2024-10-04] MEDS: APIXABAN 5 MG TAB PO SCH (09:00)
[2024-10-04] MEDS: METOPROLOL TARTRATE 12.5 MG TAB PO SCH (09:00)
[2024-10-04] MEDS: lisinopriL 20 MG TAB PO SCH (09:00)
--- NOTE | 2024-10-04 10:02 | P.CRDCN ---
History of Present Illness History of present illness: HISTORY OF PRESENT ILLNESS: This is a 89-year-old male with a past medical history significant for hypertension, hyperlipidemia, DVT/PE, PVCs, and mild nonobstructive CAD. Patient follows in the office with Dr. Conway. We have been asked to see the patient in consultation for nonsustained ventricular tachycardia. Patient examined at the bedside in the emergency room. Patient states he has been feeling short of breath for the past 2 years. He has been attending pulmonary rehab for the past 4 to 5 months and goes twice a week. He states he was at rehab yesterday when he started to feel clammy. He states that a staff member took his blood pressure and it was noted to be in the 180s so he was directed to go to the emergency room. The patient was taken to [facility]. While in the emergency room the patient was found to have a few short runs of nonsustained ventricular tachycardia. He was started on IV amiodarone per the ER physician and transferred to [facility] for further evaluation. Records from [place] reviewed revealing that patient had 3 episodes of 5 beats of V. tach. DIAGNOSTICS: - EKG reveals sinus mechanism with right bundle branch block and PVCs. - Laboratory data: WBC 6.16. Hemoglobin 13.5. Platelet count 266. Sodium 138. Potassium 4.3. BUN 15. Creatinine 0.95. Magnesium 1.9. Troponin negative x 3. - Current home cardiac medications include Eliquis 5 mg twice a day, Lasix 20 mg daily, lisinopril 20 mg daily. - Most recent echocardiogram obtained in January 2023 revealing ejection fraction 45 to 50%, mild to moderate MR, mild to moderate pulmonic insufficiency - Cardiac catheterization history: March 2024 revealing 30% left main stenosis, 40% mid LAD stenosis and mild to 20 to 30% circumflex and RCA stenosis. REVIEW OF SYSTEMS: At the time of my exam: CONSTITUTIONAL: Denies fever or chills. HEENT: Denies blurred vision, vision changes, or eye pain. Denies hemoptysis CARDIOVASCULAR: Denies chest pain. Denies orthopnea. Denies PND. Denies palpitations RESPIRATORY: Denies shortness of breath. GASTROINTESTINAL: Denies abdominal pain. Denies nausea or vomiting. HEMATOLOGIC: Denies bleeding disorders. GENITOURINARY: Denies any blood in urine. SKIN: Denies pruitis. Denies rash. PHYSICAL EXAM: VITAL SIGNS: Reviewed. GENERAL: Well-developed in no acute distress. HEENT: Head is normocephalic. Pupils are equal, round. Sclerae anicteric. Mucous membranes of the mouth are moist. Neck supple. No JVD or thyromegaly LUNGS: Respirations even and unlabored. Lungs essentially clear to auscultation bilaterally. HEART: Regular rate and rhythm. S1 and S2 heard. ABDOMEN: Soft. Nondistended. Nontender. EXTREMITIES: Normal range of motion. No clubbing or cyanosis. Peripheral pulses intact. No lower extremity edema NEUROLOGIC: Awake and alert. Oriented x 3. 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 Signing provider agrees with the documented findings, assessment, and plan of care documented by [employer] OPERATOR as a scribe. Past Medical History Past Medical History: Cancer, Deep Vein Thrombosis (DVT), Hypertension, Pulmonary Embolus (PE) Additional Past Medical History / Comment(s): shortness of breath (pullmonary rehab). 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 macular degeneration Past Anesthesia/Blood Transfusion Reactions: No Reported Reaction Past Psychological History: No Psychological Hx Reported Smoking Status: Former smoker Past Alcohol Use History: None Reported Additional Past Alcohol Use History / Comment(s): quit 40 plus years ago Past Drug Use History: None Reported - Past Family History Father Family Medical History: COPD Medications and Allergies Home Medications Medication Instructions Recorded Confirmed Type Magnesium Gluconate [Magonate] 500 mg PO HS 10/06/17 10/03/24 History Vit C/E/Zn/Coppr/Lutein/Zeaxan 1 cap PO BID 10/06/17 10/03/24 History [Preservision Areds 2 Softgel] lisinopriL [Zestril] 20 mg PO DAILY 03/07/24 10/03/24 History Apixaban [Eliquis] 5 mg PO BID 10/03/24 10/03/24 History Carboxymethylcellulose 1% Opth Gel 1 drop BOTH EYES QID 10/03/24 10/03/24 History Furosemide [Lasix] 20 mg PO DAILY 10/03/24 10/03/24 History Allergies Allergy/AdvReac Type Severity Reaction Status Date / Time No Known Allergies Allergy Verified 10/03/24 17:26 Physical Exam Vitals: Vital Signs Temp Pulse Pulse Resp BP BP Pulse Ox 10/04/24 09:04 97.9 F 67 22 158/87 96 10/04/24 04:00 65 17 139/77 94 L 10/04/24 00:00 98.5 F 70 19 131/68 93 L 10/03/24 18:34 82 18 161/77 96 10/03/24 16:18 84 10/03/24 16:06 97.8 F 94 18 146/95 98 Intake and Output 10/03/24 10/04/24 10/04/24 22:59 06:59 14:59 Output Total 300 250 Balance -300 -250 Output: Urine 300 250 Other: Voiding Method Urinal Weight 97.069 kg Results 10/04/24 08:06 10/04/24 08:06 Cardiac Enzymes 10/03/24 10/03/24 10/03/24 Range/Units 16:42 16:42 19:56 AST 24 (17-59) U/L Troponin I <0.012 <0.012 (0.000-0.034) ng/mL 10/03/24 Range/Units 22:56 AST (17-59) U/L Troponin I <0.012 (0.000-0.034) ng/mL CBC 10/03/24 10/04/24 Range/Units 16:42 08:06 WBC 7.01 6.16 (4.50-10.00) 10*3/uL RBC 4.88 4.71 (4.40-5.60) 10*6/uL Hgb 14.1 13.5 (13.0-17.0) g/dL Hct 40.7 40.3 (39.6-50.0) % Plt Count 276 266 (140-440) 10*3/uL Comprehensive Metabolic Panel 10/03/24 10/04/24 Range/Units 16:42 08:06 Sodium 138 138 (137-145) mmol/L Potassium 3.8 4.3 (3.5-5.1) mmol/L Chloride 105 104 (98-107) mmol/L Carbon Dioxide 24 29 (22-30) mmol/L BUN 17 15 (9-20) mg/dL Creatinine 0.88 0.95 (0.66-1.25) mg/dL Glucose 101 H 109 H (74-99) mg/dL Calcium 8.9 8.8 (8.4-10.2) mg/dL AST 24 (17-59) U/L ALT 23 (4-49) U/L Alkaline Phosphatase 99 (38-126) U/L Total Protein 6.9 (6.3-8.2) g/dL Albumin 3.7 (3.5-5.0) g/dL Current Medications Generic Name Dose Route Start Last Admin Trade Name Freq PRN Reason Stop Dose Admin Apixaban 5 mg 10/04/24 09:00 10/04/24 09:00 Apixaban 5 Mg Tab PO 5 mg BID RAUL Administration Protocol Amiodarone HCl 450 mg/ 250 mls @ 16.667 mls/hr 10/03/24 23:00 10/03/24 23:59 Dextrose/Water IV 10/04/24 16:59 0.5 mg/min .Q15H RAUL 16.667 mls/hr Administration Protocol 0.5 MG/MIN Lisinopril 20 mg 10/04/24 09:00 10/04/24 09:00 Lisinopril 20 Mg Tab PO 20 mg DAILY RAUL Administration Metoprolol Tartrate 12.5 mg 10/04/24 09:00 10/04/24 09:00 Metoprolol Tartrate 12.5 Mg Tab PO 12.5 mg BID RAUL Administration Naloxone HCl 0.2 mg 10/03/24 17:24 Naloxone 0.4 Mg/Ml 1 Ml Vial IV Q2M PRN Opioid Reversal Intake and Output 10/03/24 10/04/24 10/04/24 22:59 06:59 14:59 Output Total 300 250 Balance -300 -250 Output: Urine 300 250 Other: Voiding Method Urinal Weight 97.069 kg 10/04/24 08:06 10/04/24 08:06
--- NOTE | 2024-10-04 16:03 | P.PN ---
Subjective Progress Note Date: 10/04/24 Hospital Course: 89-year-old male with history of hypertension and venous thromboembolism presented for evaluation of progressive shortness of breath over the past 2 weeks he reports getting short winded just walking to the mailbox. Patient was at rehab when they found that his blood pressure was elevated so he was sent to the ER at [facility] and over there he was found to be shortness of breat h and having nonsustained ventricular tachycardia. He was subsequently started on amiodarone and was sent to our hospital for cardiology evaluation. Patient did have a history of blood clots happened about 2 years ago while he was on a trip and since then he has been on Eliquis 5 mg twice daily. Patient denies any shortness of breath at rest denies any orthopnea or paroxysmal nocturnal dyspnea, denies any coughing, denies any fevers or chills, denies any palpitations or arrhythmia, denies any GI bleeding, denies any headache or vision change, denies any chest pain abdominal pain, denies any urinary or bowel habit changes. Patient denies tobacco, illicit drugs or heavy alcohol use. Subjective: Patient was seen and examined at bedside. No acute events overnight. Patient reports that his shortness of breath has improved since yesterday. Denies any fever, chills, chest pain, palpitations, nausea, vomiting, diarrhea, belly pain. Pertinent positives and negatives as discussed above, a complete review of systems was performed and all other systems are negative. Vitals: Signs Reviewed Physical Exam: General: nontoxic, no distress, appears at stated age Derm: warm, dry, intact Head: atraumatic, normocephalic, symmetric Eyes: EOMI, anicteric sclera Mouth: no lip lesion, mucus membranes moist Cardiovascular: S1 S2 reg, no murmur, rubs, or gallops Lungs: CTA bilateral, no rhonchi, no rales, no accessory muscle use Abdominal: soft, non-tender to palpataion, no appreciable organomegaly Extremities: no gross muscle atrophy, no edema, no contractures Neuro: Alert, Oriented, CNII-XII grossly intact Psych: well appearing, appropriate affect Data Received Today: Pertinent Labs: WBC 6.16, hemoglobin 13.5, hematocrit 40.3, platelets 266, sodium 138, potassium 4.3, chloride 104, carbon dioxide 29, BUN 15, creatinine 0.95, glucose 109 Vitals temperature 98.1, pulse rate 66, respiratory rate 22, blood pressure 156/88, O2 sat 95% on room air Imaging: EKG on 10/03/2024 showed sinus rhythm with frequent ventricular premature complexes with ventricular rate of 82 bpm, QTc interval 463 ms, no ST elevation or depression Assessment and Plan: 89-year-old male with hypertension and venous thromboembolism on blood thinner coming in due to incidental finding of nonsustained V. tach was symptomatic with shortness of breath I discussed case with ED doctor and accepted the admission for nonsustained V. tach for cardiology evaluation with anticipated length of stay less than 2 midnights #. Nonsustained V. tach Cardiology have discontinued IV amiodarone and started patient on metoprolol tartrate 12.5 mg twice daily Pending results from echocardiogram #. History of venous thromboembolism Continue with Eliquis 5 mg twice daily #. Hypertension uncontrolled Continue with lisinopril 20 mg daily Monitor blood pressure closely if continues to have elevated readings we will adjust his medications By possibly increasing lisinopril to 40 mg Full code DVT prophylaxis on Eliquis for history of DVT Anticipated discharge place: Home Anticipated discharge time: Depending on clinical course I have seen and evaluated the patient today. Discussed with the resident and agree with the residents finding and plan as documented in the resident's note. Changes highlighted in blue font. Objective - Vital Signs Vital signs: Vital Signs Temp 98.5 F 10/04/24 00:00 Pulse 65 10/04/24 04:00 Resp 17 10/04/24 04:00 BP 139/77 10/04/24 04:00 Pulse Ox 94 L 10/04/24 04:00 FiO2 Intake & Output 10/03/24 10/04/24 10/04/24 18:59 06:59 18:59 Output Total 550 Balance -550 Weight 97.069 kg Output: Urine 550 Other: Voiding Method Urinal - Labs CBC & Chem 7: 10/04/24 08:06 10/04/24 08:06 Labs: Abnormal Lab Results - Last 24 Hours (Table) 10/03/24 Range/Units 16:42 Glucose 101 H (74-99) mg/dL
[2024-10-05 05:02] VITALS: RESP 14
--- NOTE | 2024-10-05 10:34 | P.PN ---
Subjective HISTORY OF PRESENT ILLNESS: This is a 89-year-old male with a past medical history significant for hypertension, hyperlipidemia, DVT/PE, PVCs, and mild nonobstructive CAD. Patient follows in the office with Dr. Conway. We have been asked to see the patient in consultation for nonsustained ventricular tachycardia. Patient examined at the bedside in the emergency room. Patient states he has been feeling short of breath for the past 2 years. He has been attending pulmonary rehab for the past 4 to 5 months and goes twice a week. He states he was at rehab yesterday when he started to feel clammy. He states that a staff member took his blood pressure and it was noted to be in the 180s so he was directed to go to the emergency room. The patient was taken to [facility]. While in the emergency room the patient was found to have a few short runs of nonsustained ventricular tachycardia. He was started on IV amiodarone per the ER physician and transferred to [facility] for further evaluation. Records from [place] reviewed revealing that patient had 3 episodes of 5 beats of V. tach. DIAGNOSTICS: - EKG reveals sinus mechanism with right bundle branch block and PVCs. - Laboratory data: WBC 6.16. Hemoglobin 13.5. Platelet count 266. Sodium 138. Potassium 4.3. BUN 15. Creatinine 0.95. Magnesium 1.9. Troponin negative x 3. - Current home cardiac medications include Eliquis 5 mg twice a day, Lasix 20 mg daily, lisinopril 20 mg daily. - Most recent echocardiogram obtained in January 2023 revealing ejection fraction 45 to 50%, mild to moderate MR, mild to moderate pulmonic insufficiency - Cardiac catheterization history: March 2024 revealing 30% left main stenosis, 40% mid LAD stenosis and mild to 20 to 30% circumflex and RCA stenosis. 10/05/2024 Patient examined this morning at bedside. Patient currently denies chest pain or pressure. He denies shortness of breath. Vital signs are stable. 2D echo remains pending. PHYSICAL EXAM: VITAL SIGNS: Reviewed. GENERAL: Well-developed in no acute distress. HEENT: Head is normocephalic. Pupils are equal, round. Sclerae anicteric. Mucous membranes of the mouth are moist. Neck supple. No JVD or thyromegaly LUNGS: Respirations even and unlabored. Lungs essentially clear to auscultation bilaterally. HEART: Regular rate and rhythm. S1 and S2 heard. ABDOMEN: Soft. Nondistended. Nontender. EXTREMITIES: Normal range of motion. No clubbing or cyanosis. Peripheral pulses intact. No lower extremity edema NEUROLOGIC: Awake and alert. Oriented x 3. 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 Await results. Continue Eliquis, lisinopril, metoprolol Patient may be discharged home today from a cardiac standpoint once echo is resulted Patient to follow-up postdischarge with Dr. Conway Nurse practitioner note has been reviewed by physician. Signing provider agrees with the documented findings, assessment, and plan of care documented by MATHEMATICAL ENGINEERING TECHNICIAN as a scribe. Objective - Vital Signs Vital signs: Vital Signs Temp 97.6 F 10/05/24 07:36 Pulse 85 10/05/24 07:36 Resp 14 10/05/24 07:36 BP 131/72 10/05/24 07:36 Pulse Ox 95 10/05/24 07:36 FiO2 Intake & Output 10/04/24 10/05/24 10/05/24 18:59 06:59 18:59 Intake Total 100 360 100 Output Total 300 Balance 100 60 100 Weight 97.069 kg 92.9 kg Intake: Oral 100 360 100 Output: Urine 300 Other: Voiding Method Urinal # Voids 1 - Labs CBC & Chem 7: 10/04/24 08:06 10/04/24 08:06
[2024-10-05 11:05] VITALS: BP 139/75; PULSE 72; TEMP 97.7
--- NOTE | 2024-10-05 14:19 | CA ---
Transthoracic Echo Report Name: Parrish Caldwell Age: 89 Gender: M : 1935 Exam Date: 10/05/2024 07:45 Exam Location: [place] Echo Ht (in): 71 Wt (lb): 214 Ordering Physician: Zari Marie Attending/Referring Phys: [id number], Cynthia Gaming Host BZ Procedure CPT: Indications: lv function, palpitations Cardiac Hx: Technical Quality: Fair Contrast 1: Total Dose (mL): Contrast 2: Total Dose (mL): MEASUREMENTS (Male / Female) Normal Values 2D ECHO LV Diastolic Diameter PLAX 4.3 cm 4.2 - 5.9 / 3.9 - 5.3 cm LV Systolic Diameter PLAX 3.0 cm IVS Diastolic Thickness 1.6 cm 0.6 - 1.0 / 0.6 - 0.9 cm LVPW Diastolic Thickness 1.6 cm 0.6 - 1.0 / 0.6 - 0.9 cm LV Relative Wall Thickness 0.7 RV Internal Dim ED PLAX 4.0 cm LVOT Diameter 2.8 cm LA Systolic Diameter LX 4.3 cm 3.0 - 4.0 / 2.7 - 3.8 cm LA Volume 61.0 cm??? 18 - 58 / 22 - 52 cm??? LA Volume Index 27.4 cm???/m??? 16 - 28 cm???/m??? M-MODE Aortic Root Diameter MM 3.3 cm DOPPLER AV Peak Velocity 191.5 cm/s AV Peak Gradient 14.7 mmHg AV Mean Velocity 107.0 cm/s AV Mean Gradient 5.6 mmHg AV Velocity Time Integral 34.6 cm LVOT Peak Velocity 86.6 cm/s LVOT Peak Gradient 3.0 mmHg LVOT Velocity Time Integral 17.8 cm LVOT Stroke Volume 107.5 cm??? LVOT Stroke Volume Index 49.5 ml/m??? LVOT Cardiac Index 4342.1 cm???/min???m??? AV Area Cont Eq vti 3.1 cm??? AV Area Cont Eq pk 2.7 cm??? MV Area PHT 4.7 cm??? Mitral E Point Velocity 57.1 cm/s Mitral A Point Velocity 93.9 cm/s Mitral E to A Ratio 0.6 MV Deceleration Time 163.0 ms TR Peak Velocity 279.3 cm/s TR Peak Gradient 31.2 mmHg Right Ventricular Systolic Press 36.0 mmHg FINDINGS Left Ventricle Left ventricular ejection fraction is estimated at 55-60 %. Left ventricular cavity size normal. Moderate concentric left ventricular hypertrophy. Right Ventricle Moderate right ventricular dilatation. Mild pulmonary hypertension. Right Atrium Normal right atrial size. No right atrial thrombus or mass seen. Left Atrium Mildly increased left atrial diameter. Mildly increased left atrial volume. Mildly increased left atrial area. No left atrial thrombus or mass present. Mitral Valve Structurally normal mitral valve. Mitral annular calcification. No mitral stenosis, regurgitation or prolapse. Aortic Valve Aortic valve not well visualized. Thickened aortic valve without stenosis. Aortic valve sclerosis. Tricuspid Valve Structurally normal tricuspid valve. Mild tricuspid regurgitation. Pulmonic Valve Structurally normal pulmonic valve. Mild pulmonic regurgitation. Pericardium No pericardial effusion. Aorta Normal size aortic root and proximal ascending aorta. CONCLUSIONS Left ventricular ejection fraction 55 to 60% Moderate increased left ventricular wall thickness Mildly dilated left atrium Mitral annular calcification Thickened aortic valve without significant aortic stenosis Mild tricuspid regurgitation Previewed by: Dr. Arvind Conway DO (Electronically Signed) Final Date: 05 Oct 2024 14:18
--- NOTE | 2024-10-05 14:36 | P.DS ---
Providers Date of admission: 10/03/24 17:24 Expected date of discharge: 10/05/24 Attending physician: Drake Grey MD Consults: 10/03/24 17:24 Consult Physician Urgent Consulting Provider: [facility] Consult Reason/Comments: nonsustained vtach Do you want consulting provider notified?: Yes Primary care physician: [facility] Course: Hospital course: This is a 89-year-old male with a past medical history significant for hypertension, hyperlipidemia, DVT/PE, PVCs, and mild nonobstructive CAD. Patient follows in the office with Dr. Conway. We have been asked to see the patient in consultation for nonsustained ventricular tachycardia. Patient examined at the bedside in the emergency room. Patient states he has been feeling short of breath for the past 2 years. He has been attending pulmonary rehab for the past 4 to 5 months and goes twice a week. He states he was at rehab yesterday when he started to feel clammy. He states that a staff member took his blood pressure and it was noted to be in the 180s so he was directed to go to the emergency room. The patient was taken to [facility]. While in the emergency room the patient was found to have a few short runs of nonsustained ventricular tachycardia. He was started on IV amiodarone per the ER physician and transferred to [facility] for further evaluation. Records from [place] reviewed revealing that patient had 3 episodes of 5 beats of V. tach. Patient's IV amiodarone was discontinued on 10/04/2024 and cardiology started patient on metoprolol tartrate 12.5 mg twice daily. Patient's shortness of breath improved throughout the course of hospitalization. Echocardiogram was performed on 10/05/2024 and showed left ventricular ejection fraction of 55 to 60 %. Patient's condition is overall stable to be discharged back home and follow- up with Dr. Conway in 1 week after discharge. Metoprolol tartrate 12.5 mg twice daily were added to patient's home medications. Physical examination: GENERAL: This is a 89-year-old in no apparent distress at the time of examination. Pleasant and cooperative. HEENT: Head is atraumatic, normocephalic. Pupils are equal, round, and reactive to light. Sclerae anicteric. Conjunctivae are clear. Mucus membranes of the mouth are moist. Neck is supple. RESPIRATORY: Clear to auscultation. No wheezes, rales, or rhonchi. No use of accessory muscles. Patient maintaining oxygen saturation greater than 92%. No chest wall tenderness is noted on palpation or with deep breathing. CARDIOVASCULAR: Regular rate and rhythm. S1 and S2 noted. No systolic or diastolic murmur auscultated. No JVD noted. No S3 or S4 noted. GASTROINTESTINAL: No distention noted. Abdomen soft and round. Normal active bowel sounds auscultated x 4 quadrants. No pain or tenderness noted upon palpation. INTEGUMENTARY: No cyanosis. No jaundice. No rashes noted. No cellulitis noted. EXTREMITIES: 2+ peripheral pulses. No evidence of peripheral edema. No calf tenderness noted. NEUROLOGIC: Cranial nerves II-XII intact. PSYCHIATRIC: Awake, alert, and oriented X 3. Appropriate affect. Intact judgement and insight. Discharge diagnoses: Nonsustained ventricular tachycardia History of venous thromboembolism Hypertension A total of 38 minutes of time were spent preparing this complex discharge summary. Patient was discharged on 10/05/2024 at 1429. I have seen and evaluated the patient today. Discussed with the resident and agree with the residents finding and plan as documented in the resident's note. Changes highlighted in blue font. Patient Condition at Discharge: Stable Plan - Discharge Summary New Discharge Prescriptions: New Metoprolol Tartrate [Lopressor] 12.5 mg PO BID 30 Days #60 tablet Continue Magnesium Gluconate [Magonate] 500 mg PO HS Vit C/E/Zn/Coppr/Lutein/Zeaxan [Preservision Areds 2 Softgel] 1 cap PO BID Carboxymethylcellulose 1% Opth Gel 1 drop BOTH EYES QID Apixaban [Eliquis] 5 mg PO BID lisinopriL [Zestril] 20 mg PO DAILY Furosemide [Lasix] 20 mg PO DAILY Discharge Medication List Magnesium Gluconate [Magonate] 500 mg PO HS 10/06/17 [History] Vit C/E/Zn/Coppr/Lutein/Zeaxan [Preservision Areds 2 Softgel] 1 cap PO BID 10/06/17 [History] lisinopriL [Zestril] 20 mg PO DAILY 03/07/24 [History] Apixaban [Eliquis] 5 mg PO BID 10/03/24 [History] Carboxymethylcellulose 1% Opth Gel 1 drop BOTH EYES QID 10/03/24 [History] Furosemide [Lasix] 20 mg PO DAILY 10/03/24 [History] Metoprolol Tartrate [Lopressor] 12.5 mg PO BID 30 Days #60 tablet 10/05/24 [Rx] Follow up Appointment(s)/Referral(s): Arvind Conway DO [STAFF PHYSICIAN] - 1 Week (Patient to make appointment ) Pedro Muniz DO [Primary Care Provider] - 1-2 days (Patient to make appointment ) Patient Instructions/Handouts: Hypoxia (GEN), Tachycardia (GEN) Activity/Diet/Wound Care/Special Instructions: Please see PCP and cardiology. Discharge Disposition: HOME SELF-CARE
== END 2024-10-05 15:48 | disposition home or self-care (01) | DRG 310 ==
LOC: EC 16:03 → 3SCARD 17:24
PROVIDERS: ADMIT Family Medicine; ATTEND Family Medicine
DX: I47.20 Ventricular tachycardia, unspecified (principal); I10 Essential (primary) hypertension; E78.5 Hyperlipidemia, unspecified; I49.3 Ventricular premature depolarization; I25.10 Atherosclerotic heart disease of native coronary artery without angina pectoris; Z86.718 Personal history of other venous thrombosis and embolism; Z85.830 Personal history of malignant neoplasm of bone; Z86.711 Personal history of pulmonary embolism; Z79.01 Long term (current) use of anticoagulants; Z79.899 Other long term (current) drug therapy; Z87.891 Personal history of nicotine dependence
CPT/HCPCS: 36415; 80048; 80053; 83735; 84484; 85025; 93005; 93306; 96365; 96366; 99285